=== PATIENT | female | born 1960 | race Two or more races ===

== ENCOUNTER 2017-01-22 17:15 | Inpatient (IN) | payer MEDICARE, OTHER ==
[~2017-01-22] VITALS: Ht 165.1 cm; Wt 111.0 kg
[~2017-01-22 17:15] MED LIST: CLON0.5T4 PO; DIPH50 PO; DULO60CA44 PO; FURO40 PO; HYDR32TA PO; HYDR8TAB2 PO; LEVO75 PO; OMEP20CA10 PO; POTA20TA11 PO; PREM3 PO; PROM25 PO; RAMI10TA PO
[2017-01-22] MEDS ORDERED: NAPR-58 PO (19:45)
[2017-01-22] MEDS ORDERED: VITAD1000 PO (19:45)
[2017-01-22] MEDS ORDERED: ARIP10TA14 PO (19:45)
[2017-01-22] MEDS ORDERED: ASPI81 PO (19:45)
[2017-01-22] MEDS ORDERED: VARE1TAB22 PO (19:45)
[2017-01-22] MEDS ORDERED: CLON.1 PO (19:45)
[2017-01-22] MEDS ORDERED: METO-325 PO (19:45)
[2017-01-22 20:14] LABS: BASOPHILS % (AUTO) 0.2 % (0.0-2.0); EOSINOPHILS % (AUTO) 1.1 % (1.0-6.0); HEMATOCRIT 39.6 % (36-46); HEMOGLOBIN 12.8 g/dL (12.0-16.0); LYMPHOCYTES # (AUTO) 2.4 K/uL (1.0-4.8); LYMPHOCYTES % (AUTO) 21.3 % (22.0-44.0); MEAN CORPUSCULAR HEMOGLOBIN 28.5 pg (26.0-34.0); MEAN CORPUSCULAR HGB CONC 32.4 G/dL (31.0-37.0); MEAN CORPUSCULAR VOLUME 88 fL (80-100); MONOCYTES # (AUTO) 0.4 K/uL (0.1-1.0); NEUTROPHILS # (AUTO) 8.3 K/uL (1.8-7.7); NEUTROPHILS % (AUTO) 73.4 % (40.0-70.0); PLATELET COUNT (AUTO) 319 K/uL (150-450); WHITE BLOOD COUNT (AUTO) 11.3 K/uL (4.5-11.0)
[2017-01-22 20:28] LABS: ANION GAP 7 mmol/L (8-16); CALCIUM, TOTAL 9.1 mg/dL (8.8-10.5); CARBON DIOXIDE 29 mmol/L (22-29); CHLORIDE 105 mmol/L (98-107); CREATININE 0.95 mg/dL (0.60-1.30); GLOMERULAR FILTR. RATE CALC > 60 mL/min (>60); POTASSIUM 3.2 mmol/L (3.5-5.1); SODIUM SERUM 141 mmol/L (136-145); UREA NITROGEN, BLOOD 14 mg/dL (7-18)
[2017-01-22 20:34] LABS: B-TYPE NATRIURETIC PEPTIDE 15 pg/mL (0-100)
[2017-01-22 20:36] LABS: LACTIC ACID 1.9 mmol/L (0.4-2.0)
[2017-01-22 20:43] LABS: ALANINE AMINOTRANSFERASE 30 U/L (12-78); ALBUMIN 3.6 g/dL (3.4-5.0); ASPARTATE AMINOTRANSFERASE 13 U/L (15-37); BILIRUBIN,TOTAL 0.2 mg/dL (0.1-1.0); THYROID STIMULATING HORMONE 2.08 uIU/mL (0.36-3.74); TOTAL PROTEIN, SERUM 7.7 g/dL (6.4-8.2)
[2017-01-22] MEDS ORDERED: KETOROLAC TROMETHAMINE 30 MG/ML VIAL IVP ONE (20:45)
[2017-01-22] MEDS ORDERED: VANCOMYCIN HCL 1 GM/D5% WATER 200 ML IV ONE ×2 (21:00→23:00)
[2017-01-22] MEDS ORDERED: POTASSIUM CHLORIDE 20 MEQ ER TABLET PO ONE (21:15)
[2017-01-22] MEDS ORDERED: SODIUM CHLORIDE 0.9% 1,000 ML IV ONE (21:30)
[2017-01-22] MEDS ORDERED: ONDANSETRON HCL 4 MG/2 ML VIAL IVP PRN (22:15)
[2017-01-22] MEDS ORDERED: HYDROmorphone 2 MG/ML SYRINGE IVP ONE (22:15)
[2017-01-22] MEDS ORDERED: ACETAMINOPHEN 325 MG TABLET PO PRN (22:15)
[2017-01-22] MEDS ORDERED: 0.9% SODIUM CHLORIDE 10 ML SYRINGE IVP PRN (22:15)
[2017-01-22 23:12] VITALS: BP 144/86
[2017-01-23] MEDS ORDERED: NAPROXEN 500 MG TABLET PO SCH
[2017-01-23] MEDS: METOPROLOL SUCCINATE 50 MG ER TABLET PO SCH ×3 (00:43→19:48)
[2017-01-23] MEDS: ClonazePAM 0.5 MG TABLET PO SCH ×3 (00:43→19:48)
[2017-01-23] MEDS: CloNIDine HCL 0.1 MG TABLET PO SCH ×2 (00:45→19:48)
[2017-01-23 04:13] VITALS: BP 136/89
[2017-01-23] MEDS: PROMETHAZINE HCL 25 MG TABLET PO SCH ×3 (06:39→18:23)
[2017-01-23] MEDS: LEVOTHYROXINE SODIUM 75 MCG TABLET PO SCH (06:40)
[2017-01-23 07:31] VITALS: BP 157/88
[2017-01-23] MEDS ORDERED: VANCOMYCIN HCL 1.5 GM in DEXTROSE 5%-WATER 250 ML IV SCH (08:00)
[2017-01-23] MEDS: RAMIPRIL 10 MG CAPSULE PO SCH (08:22)
[2017-01-23] MEDS: ASPIRIN 81 MG CHEWABLE TABLET PO SCH (08:23)
[2017-01-23] MEDS: DULoxetine HCL 60 MG CAPSULE PO SCH (08:23)
[2017-01-23] MEDS: CHOLECALCIFEROL (VIT D3) 2,000 UNITS TABLET PO SCH (08:24)
[2017-01-23] MEDS ORDERED: ARIPiprazole 10 MG TABLET PO SCH ×2 (09:00→11:00)
[2017-01-23] MEDS ORDERED: ACETAMINOPHEN 325 MG TABLET PO PRN (10:30)
[2017-01-23] MEDS ORDERED: IPRATROPIUM BROMIDE 0.5 MG/2.5 ML NEB SOLUTION NEB PRN (10:30)
[2017-01-23] MEDS ORDERED: ALBUTEROL SULFATE 2.5 MG/0.5 ML NEB SOLUTION NEB PRN (10:30)
[2017-01-23] MEDS ORDERED: HydrALAZINE HCL 10 MG TABLET PO PRN (10:30)
[2017-01-23] MEDS ORDERED: ONDANSETRON HCL 4 MG/2 ML VIAL IVP PRN (10:30)
[2017-01-23] MEDS ORDERED: POTASSIUM CHL 10 MEQ/WATER 50 ML IV PRN (10:30)
[2017-01-23] MEDS ORDERED: MAGNESIUM HYDROXIDE SUSPENSION 30 ML UDCUP PO PRN (10:30)
[2017-01-23] MEDS ORDERED: ZOLPIDEM TARTRATE 5 MG TABLET PO PRN (10:30)
[2017-01-23] MEDS ORDERED: BISACODYL 10 MG RECTAL RECTAL SUPPOSITORY PR PRN (10:30)
[2017-01-23] MEDS: HYDROmorphone 2 MG/ML SYRINGE IVP PRN ×2 (11:39→22:58)
[2017-01-23 11:51] VITALS: BP 136/77
[2017-01-23] MEDS: POTASSIUM CHLORIDE 20 MEQ ER TABLET PO PRN (14:50)
[2017-01-23 15:31] VITALS: BP 163/86
[2017-01-23] MEDS: MORPHINE SULFATE 2 MG/ML SYRINGE IVP PRN (18:45)
[2017-01-23 19:35] VITALS: BP 150/84
[2017-01-23] MEDS ORDERED: SODIUM CHLORIDE 0.9% 500 ML IV ONE (19:46)
[2017-01-23] MEDS ORDERED: VANCOMYCIN HCL 1.25 GM in DEXTROSE 5%-WATER 250 ML IV SCH (20:00)
[2017-01-23] MEDS: CeFAZolin 2 GM/DEXTROSE 50 ML IV SCH (22:58)
[2017-01-23 23:25] VITALS: BP 145/86
[2017-01-24] MEDS ORDERED: 0.9% SODIUM CHLORIDE 10 ML SYRINGE IVP PRN (00:15)
[2017-01-24 04:59] VITALS: BP 146/71
[2017-01-24] MEDS: PROMETHAZINE HCL 25 MG TABLET PO SCH ×3 (05:27→18:15)
[2017-01-24] MEDS: LEVOTHYROXINE SODIUM 75 MCG TABLET PO SCH (05:27)
[2017-01-24 06:02] LABS: BASOPHILS % (AUTO) 0.6 % (0.0-2.0); EOSINOPHILS % (AUTO) 2.9 % (1.0-6.0); HEMATOCRIT 37.7 % (36-46); LYMPHOCYTES # (AUTO) 2.2 K/uL (1.0-4.8); LYMPHOCYTES % (AUTO) 26.3 % (22.0-44.0); MEAN CORPUSCULAR HEMOGLOBIN 28.2 pg (26.0-34.0); MEAN CORPUSCULAR HGB CONC 31.9 G/dL (31.0-37.0); MEAN CORPUSCULAR VOLUME 89 fL (80-100); MONOCYTES # (AUTO) 0.5 K/uL (0.1-1.0); MONOCYTES % (AUTO) 5.7 % (2.0-9.0); NEUTROPHILS # (AUTO) 5.5 K/uL (1.8-7.7); NEUTROPHILS % (AUTO) 64.5 % (40.0-70.0); PLATELET COUNT (AUTO) 278 K/uL (150-450); RED BLOOD CELL COUNT(AUTO) 4.25 MIL/uL (4.00-5.20); RED CELL DISTRIBUTION WIDTH 14.1 % (11.5-14.5); WHITE BLOOD COUNT (AUTO) 8.6 K/uL (4.5-11.0)
[2017-01-24 06:55] LABS: HEMOGLOBIN A1C 6.3 % (4.5-6.2)
[2017-01-24 07:24] LABS: ANION GAP 8 mmol/L (8-16); CALCIUM, TOTAL 8.9 mg/dL (8.8-10.5); CARBON DIOXIDE 30 mmol/L (22-29); CHLORIDE 106 mmol/L (98-107); CREATININE 0.86 mg/dL (0.60-1.30); GLOMERULAR FILTR. RATE CALC > 60 mL/min (>60); POTASSIUM 3.8 mmol/L (3.5-5.1); SODIUM SERUM 144 mmol/L (136-145); THYROID STIMULATING HORMONE 2.12 uIU/mL (0.36-3.74); UREA NITROGEN, BLOOD 10 mg/dL (7-18)
[2017-01-24] MEDS: HYDROmorphone 2 MG/ML SYRINGE IVP PRN ×3 (07:24→21:33)
[2017-01-24] MEDS: CeFAZolin 2 GM/DEXTROSE 50 ML IV SCH ×3 (07:30→23:36)
[2017-01-24] MEDS: PANTOPRAZOLE SODIUM 40 MG DR TABLET PO SCH (07:50)
[2017-01-24] MEDS: ASPIRIN 81 MG CHEWABLE TABLET PO SCH (07:50)
[2017-01-24] MEDS: ClonazePAM 0.5 MG TABLET PO SCH ×2 (07:50→19:56)
[2017-01-24] MEDS: ENOXAPARIN SODIUM 40 MG/0.4 ML PF SYRINGE SQ SCH (07:51)
[2017-01-24] MEDS: METOPROLOL SUCCINATE 50 MG ER TABLET PO SCH ×2 (07:52→19:56)
[2017-01-24] MEDS: ARIPiprazole 5 MG TABLET PO SCH (07:52)
[2017-01-24] MEDS: CHOLECALCIFEROL (VIT D3) 2,000 UNITS TABLET PO SCH (07:52)
[2017-01-24] MEDS: RAMIPRIL 10 MG CAPSULE PO SCH (07:53)
[2017-01-24] MEDS: DULoxetine HCL 60 MG CAPSULE PO SCH (07:54)
[2017-01-24] MEDS: NICOTINE 14 MG/24 HOUR PATCH TD SCH (08:00)
[2017-01-24 08:14] VITALS: BP 147/78
[2017-01-24 11:48] VITALS: BP 125/74
[2017-01-24 16:06] VITALS: BP 147/78
[2017-01-24] MEDS: CloNIDine HCL 0.1 MG TABLET PO SCH (19:56)
[2017-01-24 20:00] VITALS: BP 139/86
[2017-01-24 23:18] VITALS: BP 143/81
[2017-01-25 04:00] VITALS: BP 135/68
[2017-01-25] MEDS: LEVOTHYROXINE SODIUM 75 MCG TABLET PO SCH (05:50)
[2017-01-25] MEDS: PROMETHAZINE HCL 25 MG TABLET PO SCH ×3 (05:50→18:14)
[2017-01-25] MEDS: HYDROmorphone 2 MG/ML SYRINGE IVP PRN ×2 (05:55→14:42)
[2017-01-25 06:07] LABS: BASOPHILS # (AUTO) 0.08 K/uL (0.00-0.20); EOSINOPHILS # (AUTO) 0.17 K/uL (0.00-0.70); EOSINOPHILS % (AUTO) 2.14 % (1.0-6.0); HEMOGLOBIN 10.6 g/dL (12.0-16.0); LYMPHOCYTES % (AUTO) 24.7 % (22.0-44.0); MEAN CORPUSCULAR HEMOGLOBIN 29.6 pg (26.0-34.0); MEAN CORPUSCULAR HGB CONC 33.1 G/dL (31.0-37.0); MEAN CORPUSCULAR VOLUME 89 fL (80-100); MONOCYTES # (AUTO) 0.5 K/uL (0.1-1.0); MONOCYTES % (AUTO) 5.6 % (2.0-9.0); NEUTROPHILS # (AUTO) 5.3 K/uL (1.8-7.7); NEUTROPHILS % (AUTO) 66.5 % (40.0-70.0); PLATELET COUNT (AUTO) 235 K/uL (150-450); RED BLOOD CELL COUNT(AUTO) 3.57 MIL/uL (4.00-5.20); RED CELL DISTRIBUTION WIDTH 14.4 % (11.5-14.5)
[2017-01-25 06:49] LABS: ANION GAP 8 mmol/L (8-16); CALCIUM, TOTAL 7.8 mg/dL (8.8-10.5); CARBON DIOXIDE 29 mmol/L (22-29); CHLORIDE 106 mmol/L (98-107); CREATININE 0.85 mg/dL (0.60-1.30); GLOMERULAR FILTR. RATE CALC > 60 mL/min (>60); POTASSIUM 3.3 mmol/L (3.5-5.1); SODIUM SERUM 143 mmol/L (136-145); UREA NITROGEN, BLOOD 17 mg/dL (7-18)
[2017-01-25 07:20] VITALS: BP 135/82
[2017-01-25] MEDS: ARIPiprazole 5 MG TABLET PO SCH (08:43)
[2017-01-25] MEDS: ASPIRIN 81 MG CHEWABLE TABLET PO SCH (08:43)
[2017-01-25] MEDS: ClonazePAM 0.5 MG TABLET PO SCH ×2 (08:44→20:31)
[2017-01-25] MEDS: RAMIPRIL 10 MG CAPSULE PO SCH (08:44)
[2017-01-25] MEDS: PANTOPRAZOLE SODIUM 40 MG DR TABLET PO SCH (08:44)
[2017-01-25] MEDS: CHOLECALCIFEROL (VIT D3) 2,000 UNITS TABLET PO SCH (08:44)
[2017-01-25] MEDS: DULoxetine HCL 60 MG CAPSULE PO SCH (08:44)
[2017-01-25] MEDS: POTASSIUM CHLORIDE 20 MEQ ER TABLET PO PRN (08:45)
[2017-01-25] MEDS: METOPROLOL SUCCINATE 50 MG ER TABLET PO SCH ×2 (08:45→20:31)
[2017-01-25] MEDS: CeFAZolin 2 GM/DEXTROSE 50 ML IV SCH ×2 (08:46→16:05)
[2017-01-25] MEDS: ENOXAPARIN SODIUM 40 MG/0.4 ML PF SYRINGE SQ SCH (08:47)
[2017-01-25] MEDS: NICOTINE 14 MG/24 HOUR PATCH TD SCH (09:00)
[2017-01-25 11:20] VITALS: BP 125/84
[2017-01-25] MEDS ORDERED: ARIP5TAB9 PO (12:56)
[2017-01-25] MEDS: FUROSEMIDE 20 MG TABLET PO SCH (13:10)
[2017-01-25] MEDS: DiphenhydrAMINE HCL 25 MG CAPSULE PO PRN (16:05)
[2017-01-25 16:06] VITALS: BP 142/84
[2017-01-25 19:52] VITALS: BP 126/74
[2017-01-25] MEDS ORDERED: VANCOMYCIN HCL 1.25 GM in DEXTROSE 5%-WATER 250 ML IV SCH (20:00)
[2017-01-25] MEDS: CloNIDine HCL 0.1 MG TABLET PO SCH (20:31)
[2017-01-25 23:58] VITALS: BP 138/81
[2017-01-26] MEDS: HYDROmorphone 2 MG/ML SYRINGE IVP PRN ×3 (00:04→15:10)
[2017-01-26 04:00] VITALS: BP 137/75
[2017-01-26] MEDS: DiphenhydrAMINE HCL 25 MG CAPSULE PO PRN ×2 (04:10→10:00)
[2017-01-26] MEDS: PROMETHAZINE HCL 25 MG TABLET PO SCH ×3 (06:03→17:02)
[2017-01-26] MEDS: LEVOTHYROXINE SODIUM 75 MCG TABLET PO SCH (06:20)
[2017-01-26 06:37] LABS: BASOPHILS % (AUTO) 0.3 % (0.0-2.0); EOSINOPHILS % (AUTO) 2.8 % (1.0-6.0); HEMATOCRIT 35.1 % (36-46); HEMOGLOBIN 11.4 g/dL (12.0-16.0); LYMPHOCYTES # (AUTO) 2.1 K/uL (1.0-4.8); LYMPHOCYTES % (AUTO) 27.4 % (22.0-44.0); MEAN CORPUSCULAR HEMOGLOBIN 28.9 pg (26.0-34.0); MEAN CORPUSCULAR HGB CONC 32.5 G/dL (31.0-37.0); MEAN CORPUSCULAR VOLUME 89 fL (80-100); MONOCYTES # (AUTO) 0.4 K/uL (0.1-1.0); MONOCYTES % (AUTO) 5.4 % (2.0-9.0); NEUTROPHILS # (AUTO) 4.9 K/uL (1.8-7.7); NEUTROPHILS % (AUTO) 64.1 % (40.0-70.0); PLATELET COUNT (AUTO) 266 K/uL (150-450); RED BLOOD CELL COUNT(AUTO) 3.95 MIL/uL (4.00-5.20); RED CELL DISTRIBUTION WIDTH 14.3 % (11.5-14.5); WHITE BLOOD COUNT (AUTO) 7.7 K/uL (4.5-11.0)
[2017-01-26 06:45] LABS: ANION GAP 7 mmol/L (8-16); CALCIUM, TOTAL 8.7 mg/dL (8.8-10.5); CARBON DIOXIDE 31 mmol/L (22-29); CHLORIDE 105 mmol/L (98-107); CREATININE 0.82 mg/dL (0.60-1.30); GLOMERULAR FILTR. RATE CALC > 60 mL/min (>60); POTASSIUM 3.6 mmol/L (3.5-5.1); SODIUM SERUM 143 mmol/L (136-145); UREA NITROGEN, BLOOD 12 mg/dL (7-18)
[2017-01-26 08:07] VITALS: BP 133/78
[2017-01-26] MEDS: ENOXAPARIN SODIUM 40 MG/0.4 ML PF SYRINGE SQ SCH (08:08)
[2017-01-26] MEDS: FUROSEMIDE 20 MG TABLET PO SCH (08:09)
[2017-01-26] MEDS: PANTOPRAZOLE SODIUM 40 MG DR TABLET PO SCH (08:09)
[2017-01-26] MEDS: ASPIRIN 81 MG CHEWABLE TABLET PO SCH (08:09)
[2017-01-26] MEDS: METOPROLOL SUCCINATE 50 MG ER TABLET PO SCH ×2 (08:09→20:03)
[2017-01-26] MEDS: ARIPiprazole 5 MG TABLET PO SCH (08:09)
[2017-01-26] MEDS: DULoxetine HCL 60 MG CAPSULE PO SCH (08:09)
[2017-01-26] MEDS: RAMIPRIL 10 MG CAPSULE PO SCH (08:10)
[2017-01-26] MEDS: NICOTINE 14 MG/24 HOUR PATCH TD SCH (08:10)
[2017-01-26] MEDS: ClonazePAM 0.5 MG TABLET PO SCH ×2 (08:10→20:03)
[2017-01-26] MEDS: CHOLECALCIFEROL (VIT D3) 2,000 UNITS TABLET PO SCH (08:10)
[2017-01-26] MEDS: VANCOMYCIN HCL 1 GM/D5% WATER 200 ML IV SCH ×3 (08:13→23:54)
[2017-01-26] MEDS: DiphenhydrAMINE HCL 50 MG/ML VIAL IM PRN ×4 (10:00→23:58)
[2017-01-26 11:54] VITALS: BP 154/74
[2017-01-26 16:12] VITALS: BP 125/75
[2017-01-26 19:18] VITALS: BP 156/93
[2017-01-26] MEDS: CloNIDine HCL 0.1 MG TABLET PO SCH (20:04)
[2017-01-26] MEDS ORDERED: FUROSEMIDE 20 MG/2 ML VIAL IVP SCH (21:00)
[2017-01-26] MEDS: MORPHINE SULFATE 2 MG/ML SYRINGE IVP PRN (22:49)
[2017-01-26 23:23] VITALS: BP 119/68
[2017-01-27 04:40] VITALS: BP 143/75
[2017-01-27] MEDS: LEVOTHYROXINE SODIUM 75 MCG TABLET PO SCH (05:56)
[2017-01-27] MEDS: PROMETHAZINE HCL 25 MG TABLET PO SCH ×3 (05:56→17:49)
[2017-01-27 07:56] LABS: CALCIUM, TOTAL 8.8 mg/dL (8.8-10.5); CREATININE 0.96 mg/dL (0.60-1.30); POTASSIUM 3.8 mmol/L (3.5-5.1)
[2017-01-27] MEDS: PANTOPRAZOLE SODIUM 40 MG DR TABLET PO SCH (08:06)
[2017-01-27] MEDS: ENOXAPARIN SODIUM 40 MG/0.4 ML PF SYRINGE SQ SCH (08:06)
[2017-01-27] MEDS: ClonazePAM 0.5 MG TABLET PO SCH ×2 (08:06→20:42)
[2017-01-27] MEDS: CHOLECALCIFEROL (VIT D3) 2,000 UNITS TABLET PO SCH (08:06)
[2017-01-27] MEDS: ASPIRIN 81 MG CHEWABLE TABLET PO SCH (08:06)
[2017-01-27] MEDS: ARIPiprazole 5 MG TABLET PO SCH (08:06)
[2017-01-27] MEDS: DiphenhydrAMINE HCL 50 MG/ML VIAL IM PRN ×2 (08:07→16:08)
[2017-01-27] MEDS: METOPROLOL SUCCINATE 50 MG ER TABLET PO SCH ×2 (08:07→20:43)
[2017-01-27] MEDS: RAMIPRIL 10 MG CAPSULE PO SCH (08:07)
[2017-01-27] MEDS: DULoxetine HCL 60 MG CAPSULE PO SCH (08:07)
[2017-01-27] MEDS: VANCOMYCIN HCL 1 GM/D5% WATER 200 ML IV SCH (08:13)
[2017-01-27] MEDS: HYDROmorphone 2 MG/ML SYRINGE IVP PRN ×2 (08:14→16:08)
[2017-01-27 08:19] VITALS: BP 148/92
[2017-01-27 11:02] VITALS: BP 125/86
[2017-01-27 15:37] VITALS: BP 124/74
[2017-01-27 20:09] VITALS: BP 130/80
[2017-01-27] MEDS: VANCOMYCIN HCL 1.5 GM in DEXTROSE 5%-WATER 250 ML IV SCH (20:37)
[2017-01-27] MEDS: CloNIDine HCL 0.1 MG TABLET PO SCH (20:42)
[2017-01-27] MEDS: CefTAZidime PENTAHYDRATE 2 GM in DEXTROSE 5%-WATER 50 ML IV SCH (22:52)
[2017-01-27] MEDS: DiphenhydrAMINE HCL 50 MG/ML VIAL IVP PRN (22:53)
[2017-01-27 23:57] VITALS: BP 133/78
[2017-01-28] MEDS: HYDROmorphone 2 MG/ML SYRINGE IVP PRN ×3 (00:12→17:08)
[2017-01-28 04:00] VITALS: BP 125/81
[2017-01-28] MEDS: PROMETHAZINE HCL 25 MG TABLET PO SCH ×3 (06:17→19:05)
[2017-01-28] MEDS: LEVOTHYROXINE SODIUM 75 MCG TABLET PO SCH (06:17)
[2017-01-28] MEDS: CefTAZidime PENTAHYDRATE 2 GM in DEXTROSE 5%-WATER 50 ML IV SCH ×3 (06:18→22:02)
[2017-01-28] MEDS: DiphenhydrAMINE HCL 50 MG/ML VIAL IVP PRN ×2 (06:23→14:52)
[2017-01-28] MEDS ORDERED: SODIUM CHLORIDE 0.9% 250 ML IV ONE ×2 (06:32→12:47)
[2017-01-28 07:01] LABS: ANION GAP 7 mmol/L (8-16); CALCIUM, TOTAL 8.8 mg/dL (8.8-10.5); CARBON DIOXIDE 32 mmol/L (22-29); CHLORIDE 104 mmol/L (98-107); CREATININE 0.88 mg/dL (0.60-1.30); GLOMERULAR FILTR. RATE CALC > 60 mL/min (>60); POTASSIUM 3.5 mmol/L (3.5-5.1); SODIUM SERUM 143 mmol/L (136-145); UREA NITROGEN, BLOOD 10 mg/dL (7-18)
[2017-01-28 08:01] VITALS: BP 134/78
[2017-01-28] MEDS: VANCOMYCIN HCL 1.5 GM in DEXTROSE 5%-WATER 250 ML IV SCH ×2 (08:29→19:45)
[2017-01-28] MEDS: ENOXAPARIN SODIUM 40 MG/0.4 ML PF SYRINGE SQ SCH (08:30)
[2017-01-28] MEDS: FUROSEMIDE 20 MG/2 ML VIAL IVP SCH (08:31)
[2017-01-28] MEDS: ClonazePAM 0.5 MG TABLET PO SCH ×2 (08:32→19:45)
[2017-01-28] MEDS: ASPIRIN 81 MG CHEWABLE TABLET PO SCH (08:32)
[2017-01-28] MEDS: PANTOPRAZOLE SODIUM 40 MG DR TABLET PO SCH (08:32)
[2017-01-28] MEDS: METOPROLOL SUCCINATE 50 MG ER TABLET PO SCH ×2 (08:41→19:45)
[2017-01-28] MEDS: DULoxetine HCL 60 MG CAPSULE PO SCH (08:49)
[2017-01-28] MEDS: RAMIPRIL 10 MG CAPSULE PO SCH (11:11)
[2017-01-28] MEDS: ARIPiprazole 5 MG TABLET PO SCH (11:11)
[2017-01-28] MEDS: CHOLECALCIFEROL (VIT D3) 2,000 UNITS TABLET PO SCH (11:11)
[2017-01-28 11:50] VITALS: BP 140/82
[2017-01-28 16:11] VITALS: BP 116/80
[2017-01-28] MEDS ORDERED: GABAPENTIN 300 MG CAPSULE PO PRN (17:00)
[2017-01-28 19:23] VITALS: BP 135/74
[2017-01-28] MEDS: CloNIDine HCL 0.1 MG TABLET PO SCH (19:45)
[2017-01-28 23:14] VITALS: BP 130/84
[2017-01-29] MEDS: HYDROmorphone 2 MG/ML SYRINGE IVP PRN ×3 (01:13→17:11)
[2017-01-29] MEDS: DiphenhydrAMINE HCL 50 MG/ML VIAL IVP PRN ×3 (01:16→17:11)
[2017-01-29 04:45] VITALS: BP 130/73
[2017-01-29] MEDS: CefTAZidime PENTAHYDRATE 2 GM in DEXTROSE 5%-WATER 50 ML IV SCH ×2 (05:34→13:21)
[2017-01-29] MEDS: PROMETHAZINE HCL 25 MG TABLET PO SCH ×3 (05:34→17:03)
[2017-01-29] MEDS: LEVOTHYROXINE SODIUM 75 MCG TABLET PO SCH (05:34)
[2017-01-29] MEDS: VANCOMYCIN HCL 1.5 GM in DEXTROSE 5%-WATER 250 ML IV SCH (07:11)
[2017-01-29 07:47] VITALS: BP 129/74
[2017-01-29] MEDS: METOPROLOL SUCCINATE 50 MG ER TABLET PO SCH (08:25)
[2017-01-29] MEDS: PANTOPRAZOLE SODIUM 40 MG DR TABLET PO SCH (08:25)
[2017-01-29] MEDS: ClonazePAM 0.5 MG TABLET PO SCH (08:25)
[2017-01-29] MEDS: CHOLECALCIFEROL (VIT D3) 2,000 UNITS TABLET PO SCH (08:25)
[2017-01-29] MEDS: ASPIRIN 81 MG CHEWABLE TABLET PO SCH (08:25)
[2017-01-29] MEDS: RAMIPRIL 10 MG CAPSULE PO SCH (08:25)
[2017-01-29] MEDS: DULoxetine HCL 60 MG CAPSULE PO SCH (08:26)
[2017-01-29] MEDS: ENOXAPARIN SODIUM 40 MG/0.4 ML PF SYRINGE SQ SCH (08:26)
[2017-01-29] MEDS: FUROSEMIDE 20 MG/2 ML VIAL IVP SCH (08:31)
[2017-01-29 08:38] LABS: ANION GAP 5 mmol/L (8-16); CALCIUM, TOTAL 8.8 mg/dL (8.8-10.5); CARBON DIOXIDE 33 mmol/L (22-29); CHLORIDE 103 mmol/L (98-107); CREATININE 0.86 mg/dL (0.60-1.30); GLOMERULAR FILTR. RATE CALC > 60 mL/min (>60); POTASSIUM 3.9 mmol/L (3.5-5.1); SODIUM SERUM 141 mmol/L (136-145); UREA NITROGEN, BLOOD 11 mg/dL (7-18)
[2017-01-29] MEDS ORDERED: ARIPiprazole 5 MG TABLET PO SCH (09:00)
[2017-01-29 11:56] VITALS: BP 138/78
== END 2017-01-29 18:04 | DRG 603 ==
LOC: EMS 17:17 → 6N 22:16
PROVIDERS: ADMIT Internal Medicine Geriatric Medicine; ATTEND Internal Medicine Geriatric Medicine
DX: L03.115 Cellulitis of right lower limb (principal); F33.9 Major depressive disorder, recurrent, unspecified; Z68.41 Body mass index [BMI] 40.0-44.9, adult; E55.9 Vitamin D deficiency, unspecified; L03.116 Cellulitis of left lower limb; I50.9 Heart failure, unspecified; E03.9 Hypothyroidism, unspecified; E78.5 Hyperlipidemia, unspecified; E87.6 Hypokalemia; J44.9 Chronic obstructive pulmonary disease, unspecified; F42.9 Obsessive-compulsive disorder, unspecified; F41.0 Panic disorder [episodic paroxysmal anxiety]; D64.9 Anemia, unspecified; F40.00 Agoraphobia, unspecified; T36.95XA Adverse effect of unspecified systemic antibiotic, initial encounter; M79.7 Fibromyalgia; L29.9 Pruritus, unspecified; F25.9 Schizoaffective disorder, unspecified; S81.801A Unspecified open wound, right lower leg, initial encounter; E78.00 Pure hypercholesterolemia, unspecified; I10 Essential (primary) hypertension; E66.9 Obesity, unspecified; Z79.899 Other long term (current) drug therapy; Z79.82 Long term (current) use of aspirin; Z88.2 Allergy status to sulfonamides; Z88.0 Allergy status to penicillin; Z88.1 Allergy status to other antibiotic agents; Z88.8 Allergy status to other drugs, medicaments and biological substances; Z86.73 Personal history of transient ischemic attack (TIA), and cerebral infarction without residual deficits; Z90.49 Acquired absence of other specified parts of digestive tract; Z90.710 Acquired absence of both cervix and uterus; W55.03XA Scratched by cat, initial encounter; Y93.89 Activity, other specified; Y92.89 Other specified places as the place of occurrence of the external cause; Y99.8 Other external cause status
CPT/HCPCS: 82306; 82607; 82746; 83036; 83605; 83735; 84132; 84439; 84443; 85651; 86140; 87040; 96365; 96366; 96375; 97161; 99285; J0690; J0713; J1170; J1200; J1650; J1885; J1940; J2270; J3370; J7030; J7040; J7050; J7060

== ENCOUNTER → 2017-02-28 | Outpatient (CLI) | payer MEDICARE, OTHER ==
[~2017-02-28] MED LIST changes: +ARIP5TAB9 PO; +ASPI81 PO; +CLON.1 PO; -DIPH50 PO; -FURO40 PO; -HYDR32TA PO; -HYDR8TAB2 PO; +METO-325 PO; +NAPR-58 PO; -OMEP20CA10 PO; -POTA20TA11 PO; -PREM3 PO; +VARE1TAB22 PO; +VITAD1000 PO
== END | disposition home or self-care (01) ==
LOC: RADPV 10:58
PROVIDERS: ATTEND Legal Medicine
DX: M51.36 Other intervertebral disc degeneration, lumbar region (principal); M51.37 Other intervertebral disc degeneration, lumbosacral region; M47.816 Spondylosis without myelopathy or radiculopathy, lumbar region; M43.16 Spondylolisthesis, lumbar region; M25.561 Pain in right knee; M25.562 Pain in left knee
CPT/HCPCS: 72100

== ENCOUNTER 2017-05-31 00:01 | Outpatient (RCR) | payer MEDICARE, MEDICAID, SELFPAY ==
[2014-06-15 11:46] VITALS: BP 140/87
[~2017-05-31 00:01] MED LIST changes: +AMLO-511 PO; +AMOX1TAB15 PO; +AMOX500C2 PO; +ARIP10TA8 PO; +ARIP5TAB8 PO; -ARIP5TAB9 PO; +ASPI-825 PO; +CARI250T PO; +CARI350 PO; +CEPH-581; +CHOL2000 PO; +CIPR-278 PO; +CLEOCIN PO; +CLON-570 PO; -CLON.1 PO; +CLON.5 PO; +CLOP75 PO; +CLOP75TA14; +CYCL5TAB PO; +DIPH25CA85 PO; +DIPH25CA99 PO; +DIPH50 PO; +DIPH50CA4 PO; +DOCU-119 PO; +DULO20CA30 PO; +FENT25PAT TD; +FLUC200T PO; +FURO20 PO; +FURO40 PO; +HYDR12TA PO; +HYDR2 PO; +HYDR32TA PO; +HYDR8TAB2 PO; +KDUR20 PO; +LEVO25TA4 PO; +LORA-192 PO; -METO-325 PO; +METO-391 PO; +METO25TA6 PO; +MILN100T PO; +MILN50TA PO; +MULT1TAB70 PO; +OMEP20 PO; +OMEP20CA10 PO; +OXYC-112 PO; +OXYC-158 PO; +OXYC1TAB5 PO; +OXYC60TA7 PO; +OXYM7.5T PO; +PANT40TA25 PO; +POTA20TA11 PO; +POTA8CAP10 PO; +PREG150C PO; +PREG75 PO; +PREM3 PO; +PROM12.510 PO; +PROM25TA7 PO; +PROM6.25 PO; +QUET25TA34 PO; +RAMI10 PO; +ROPI1TAB11 PO; +SERT50TA12 PO; +SULF-168 PO; +TAPE100T2 PO; +TOLT2CAP27 PO; +TOLT4CAP33 PO; +TRAZ-144 PO; +TRAZ-147 PO; +TRAZ150T79 PO; +VARE1TAB21; +VICOT; +WARF2TAB6 PO; +ZOLP10TA2; +ZOLP10TA6 PO; +ZOLP10TA7 PO; +[UNRECOGNIZED DRUG - CODE] PO
== END 2017-06-29 | disposition home or self-care (01) ==
LOC: IOPBV 00:01
PROVIDERS: ATTEND Psychiatry & Neurology Psychiatry
DX: F25.9 Schizoaffective disorder, unspecified (principal); R29.90 Unspecified symptoms and signs involving the nervous system; I25.10 Atherosclerotic heart disease of native coronary artery without angina pectoris; E78.00 Pure hypercholesterolemia, unspecified; I10 Essential (primary) hypertension; J44.9 Chronic obstructive pulmonary disease, unspecified; K82.9 Disease of gallbladder, unspecified; M79.7 Fibromyalgia; M19.90 Unspecified osteoarthritis, unspecified site; E11.9 Type 2 diabetes mellitus without complications; F17.210 Nicotine dependence, cigarettes, uncomplicated; E03.9 Hypothyroidism, unspecified; D64.9 Anemia, unspecified; Z90.49 Acquired absence of other specified parts of digestive tract; Z90.710 Acquired absence of both cervix and uterus; Z99.81 Dependence on supplemental oxygen; Z86.718 Personal history of other venous thrombosis and embolism; Z86.73 Personal history of transient ischemic attack (TIA), and cerebral infarction without residual deficits; Z88.6 Allergy status to analgesic agent; Z88.2 Allergy status to sulfonamides; Z88.8 Allergy status to other drugs, medicaments and biological substances
CPT/HCPCS: 90853

== ENCOUNTER 2017-07-13 17:00 | Emergency (ER) | payer MEDICARE, OTHER ==
[~2017-07-13] VITALS: Ht 162.6 cm; Wt 109.1 kg
[~2017-07-13 17:00] MED LIST changes: -AMLO-511 PO; -AMOX1TAB15 PO; -AMOX500C2 PO; -ARIP10TA8 PO; -ASPI-825 PO; -CARI250T PO; -CARI350 PO; -CEPH-581; -CHOL2000 PO; -CIPR-278 PO; -CLEOCIN PO; -CLON.5 PO; -CLOP75 PO; -CLOP75TA14; -CYCL5TAB PO; -DIPH25CA85 PO; -DIPH25CA99 PO; -DIPH50 PO; -DIPH50CA4 PO; -DOCU-119 PO; -DULO20CA30 PO; -FENT25PAT TD; -FLUC200T PO; -FURO20 PO; -FURO40 PO; -HYDR12TA PO; -HYDR2 PO; -HYDR32TA PO; -HYDR8TAB2 PO; -KDUR20 PO; -LEVO25TA4 PO; -LORA-192 PO; -METO25TA6 PO; -MILN100T PO; -MILN50TA PO; -MULT1TAB70 PO; -OMEP20 PO; -OMEP20CA10 PO; -OXYC-112 PO; -OXYC-158 PO; -OXYC1TAB5 PO; -OXYC60TA7 PO; -OXYM7.5T PO; -PANT40TA25 PO; -POTA20TA11 PO; -POTA8CAP10 PO; -PREG150C PO; -PREG75 PO; -PREM3 PO; -PROM12.510 PO; -PROM25TA7 PO; -PROM6.25 PO; -QUET25TA34 PO; -RAMI10 PO; -ROPI1TAB11 PO; -SERT50TA12 PO; -SULF-168 PO; -TAPE100T2 PO; -TOLT2CAP27 PO; -TOLT4CAP33 PO; -TRAZ-144 PO; -TRAZ-147 PO; -TRAZ150T79 PO; -VARE1TAB21; -VICOT; -WARF2TAB6 PO; -ZOLP10TA2; -ZOLP10TA6 PO; -ZOLP10TA7 PO; -[UNRECOGNIZED DRUG - CODE] PO
[2017-07-13] MEDS ORDERED: HYDR-305 PO (17:19)
[2017-07-13] MEDS ORDERED: RAMI10 PO (17:19)
[2017-07-13] MEDS ORDERED: FURO40 PO (17:19)
[2017-07-13 17:30] VITALS: BP 139/81
== END 2017-07-13 18:13 | disposition left against medical advice (07) ==
LOC: EMS 17:02
DX: K12.0 Recurrent oral aphthae (principal); I25.2 Old myocardial infarction; J44.9 Chronic obstructive pulmonary disease, unspecified; E78.00 Pure hypercholesterolemia, unspecified; I10 Essential (primary) hypertension; I25.10 Atherosclerotic heart disease of native coronary artery without angina pectoris; I20.9 Angina pectoris, unspecified; Z86.73 Personal history of transient ischemic attack (TIA), and cerebral infarction without residual deficits; Z87.891 Personal history of nicotine dependence; Z88.1 Allergy status to other antibiotic agents; Z88.5 Allergy status to narcotic agent; Z88.2 Allergy status to sulfonamides; Z88.8 Allergy status to other drugs, medicaments and biological substances
CPT/HCPCS: 99281

== ENCOUNTER 2017-11-23 17:19 | Emergency (ER) | payer MEDICARE, OTHER ==
[~2017-11-23] VITALS: Ht 162.6 cm; Wt 104.5 kg
[~2017-11-23 17:19] MED LIST changes: -ARIP5TAB8 PO; +FURO40 PO; +HYDR-305 PO; -NAPR-58 PO; +RAMI10 PO; -VARE1TAB22 PO
[2017-11-23] MEDS ORDERED: ACETAMINOPHEN 500 MG TABLET PO ONE (19:15)
[2017-11-23] MEDS ORDERED: CEPHALEXIN MONOHYDRATE 500 MG CAPSULE PO ONE (19:15)
[2017-11-23] MEDS ORDERED: DOXYCYCLINE 100 MG CAPSULE PO ONE (19:15)
[2017-11-23 19:27] LABS: EOSINOPHILS % (AUTO) 2.1 % (1.0-6.0); HEMATOCRIT 38.1 % (36-46); HEMOGLOBIN 12.9 g/dL (12.0-16.0); LYMPHOCYTES % (AUTO) 24.8 % (22.0-44.0); MEAN CORPUSCULAR HEMOGLOBIN 29.6 pg (26.0-34.0); MEAN CORPUSCULAR HGB CONC 33.9 G/dL (31.0-37.0); MEAN CORPUSCULAR VOLUME 87 fL (80-100); MONOCYTES # (AUTO) 0.4 K/uL (0.1-1.0); MONOCYTES % (AUTO) 4.6 % (2.0-9.0); NEUTROPHILS # (AUTO) 5.4 K/uL (1.8-7.7); NEUTROPHILS % (AUTO) 67.5 % (40.0-70.0); PLATELET COUNT (AUTO) 270 K/uL (150-450); RED BLOOD CELL COUNT(AUTO) 4.35 MIL/uL (4.00-5.20); RED CELL DISTRIBUTION WIDTH 13.4 % (11.5-14.5)
[2017-11-23 20:01] LABS: LACTIC ACID 1.6 mmol/L (0.4-2.0)
[2017-11-23 20:06] LABS: ANION GAP 5 mmol/L (8-16); CALCIUM, TOTAL 9.4 mg/dL (8.8-10.5); CARBON DIOXIDE 33 mmol/L (22-29); CHLORIDE 102 mmol/L (98-107); CREATININE 0.87 mg/dL (0.60-1.30); GLOMERULAR FILTR. RATE CALC > 60 mL/min (>60); GLUCOSE,RANDOM 89 mg/dL (70-110); POTASSIUM 3.3 mmol/L (3.5-5.1); SODIUM SERUM 140 mmol/L (136-145); UREA NITROGEN, BLOOD 13 mg/dL (7-18)
[2017-11-23 20:41] VITALS: BP 166/85
== END 2017-11-23 20:44 | disposition home or self-care (01) ==
LOC: EMS 17:24
DX: L03.116 Cellulitis of left lower limb (principal); L03.115 Cellulitis of right lower limb; I10 Essential (primary) hypertension; I89.0 Lymphedema, not elsewhere classified; J44.9 Chronic obstructive pulmonary disease, unspecified; E78.00 Pure hypercholesterolemia, unspecified; Z88.5 Allergy status to narcotic agent; Z88.2 Allergy status to sulfonamides; Z88.1 Allergy status to other antibiotic agents; Z86.73 Personal history of transient ischemic attack (TIA), and cerebral infarction without residual deficits
CPT/HCPCS: 83605; 87040; 99284

== ENCOUNTER 2018-09-26 13:28 | Emergency (ER) | payer MEDICARE, MEDICAID ==
[~2018-09-26] VITALS: Ht 162.6 cm; Wt 104.5 kg
[~2018-09-26 13:28] MED LIST changes: +CHOL200059 PO; +CLON0.5T12 PO; -CLON0.5T4 PO; -HYDR-305 PO; -RAMI10TA PO; +VALB40CA PO; -VITAD1000 PO
[2018-09-26 16:34] VITALS: BP 160/92
== END 2018-09-26 16:56 | disposition home or self-care (01) ==
LOC: EMS 13:30
DX: L02.416 Cutaneous abscess of left lower limb (principal); L02.415 Cutaneous abscess of right lower limb; L03.116 Cellulitis of left lower limb; L03.115 Cellulitis of right lower limb; I83.12 Varicose veins of left lower extremity with inflammation; I83.11 Varicose veins of right lower extremity with inflammation; I10 Essential (primary) hypertension; F41.9 Anxiety disorder, unspecified; J44.9 Chronic obstructive pulmonary disease, unspecified; M19.90 Unspecified osteoarthritis, unspecified site; F32.9 Major depressive disorder, single episode, unspecified; E78.00 Pure hypercholesterolemia, unspecified; F20.9 Schizophrenia, unspecified; Z86.73 Personal history of transient ischemic attack (TIA), and cerebral infarction without residual deficits; Z90.49 Acquired absence of other specified parts of digestive tract; Z90.710 Acquired absence of both cervix and uterus; Z87.891 Personal history of nicotine dependence; Z88.1 Allergy status to other antibiotic agents; Z88.5 Allergy status to narcotic agent; Z88.2 Allergy status to sulfonamides; Z88.8 Allergy status to other drugs, medicaments and biological substances; Z79.82 Long term (current) use of aspirin; Z79.899 Other long term (current) drug therapy

== ENCOUNTER 2018-12-06 19:15 | Inpatient (IN) | payer MEDICARE, MEDICAID ==
[~2018-12-06] VITALS: Ht 162.6 cm; Wt 119.9 kg
[2018-12-06] MEDS ORDERED: DIPH12.55 PO (19:36)
[2018-12-06] MEDS ORDERED: DULO20CA30 PO (19:36)
[2018-12-06] MEDS ORDERED: NAPR-58 PO (19:36)
[2018-12-06] MEDS ORDERED: VARE1TAB22 PO (19:36)
[2018-12-06] MEDS ORDERED: RAMI10 PO (19:36)
[2018-12-06] MEDS ORDERED: DEUT9TAB PO (19:36)
[2018-12-06] MEDS ORDERED: HYDR10TA31 PO (19:36)
[2018-12-06] MEDS ORDERED: OXYC-522 PO (19:36)
[2018-12-06] MEDS ORDERED: KETOROLAC TROMETHAMINE 30 MG/ML VIAL IVP ONE (20:30)
[2018-12-06] MEDS ORDERED: IOVERSOL 350 MG/ML 150 ML VIAL ONE (21:05)
[2018-12-06] MEDS ORDERED: KETOROLAC TROMETHAMINE 30 MG/ML VIAL IM ONE (21:30)
[2018-12-06 22:18] LABS: BASOPHILS % (AUTO) 1.1 % (0.0-2.0); EOSINOPHILS % (AUTO) 1.7 % (1.0-6.0); HEMATOCRIT 32.4 % (36-46); HEMOGLOBIN 10.6 g/dL (12.0-16.0); LYMPHOCYTES # (AUTO) 2.8 K/uL (1.0-4.8); LYMPHOCYTES % (AUTO) 24.8 % (22.0-44.0); MEAN CORPUSCULAR HEMOGLOBIN 28.8 pg (26.0-34.0); MEAN CORPUSCULAR HGB CONC 32.7 G/dL (31.0-37.0); MEAN CORPUSCULAR VOLUME 88 fL (80-100); MONOCYTES # (AUTO) 0.8 K/uL (0.1-1.0); MONOCYTES % (AUTO) 7.1 % (2.0-9.0); NEUTROPHILS # (AUTO) 7.3 K/uL (1.8-7.7); NEUTROPHILS % (AUTO) 65.3 % (40.0-70.0); PLATELET COUNT (AUTO) 292 K/uL (150-450); RED BLOOD CELL COUNT(AUTO) 3.69 MIL/uL (4.00-5.20); RED CELL DISTRIBUTION WIDTH 14.3 % (11.5-14.5)
[2018-12-06 22:32] LABS: ANION GAP 8 mmol/L (8-16); CALCIUM, TOTAL 9.2 mg/dL (8.8-10.5); CARBON DIOXIDE 29 mmol/L (22-29); CHLORIDE 107 mmol/L (98-107); CREATININE 1.18 mg/dL (0.60-1.30); GLOMERULAR FILTR. RATE CALC 47 mL/min (>60); GLUCOSE,RANDOM 89 mg/dL (70-110); POTASSIUM 3.9 mmol/L (3.5-5.1); SODIUM SERUM 144 mmol/L (136-145); UREA NITROGEN, BLOOD 25 mg/dL (7-18)
[2018-12-06 22:43] LABS: LACTIC ACID 2.5 mmol/L (0.4-2.0)
[2018-12-06 22:46] LABS: ALANINE AMINOTRANSFERASE 23 U/L (12-78); ALBUMIN 3.4 g/dL (3.4-5.0); ALKALINE PHOSPHATASE 81 U/L (46-116); ASPARTATE AMINOTRANSFERASE 18 U/L (15-37); BILIRUBIN,TOTAL 0.3 mg/dL (0.1-1.0); TOTAL PROTEIN, SERUM 7.1 g/dL (6.4-8.2)
[2018-12-06 22:49] LABS: B-TYPE NATRIURETIC PEPTIDE 24 pg/mL (0-100)
[2018-12-06] MEDS ORDERED: LIDOCAINE/PF 1% 2 ML VIAL IM ONE (23:00)
[2018-12-06] MEDS ORDERED: SODIUM CHLORIDE 0.9% 1,000 ML IV ONE (23:00)
[2018-12-06] MEDS ORDERED: CefTRIAXone SODIUM 1 GM/VIAL IM ONE (23:00)
[2018-12-07] MEDS ORDERED: ACETAMINOPHEN 325 MG TABLET PO PRN
[2018-12-07] MEDS ORDERED: BISACODYL 10 MG RECTAL RECTAL SUPPOSITORY PR PRN
[2018-12-07] MEDS ORDERED: MAGNESIUM HYDROXIDE SUSPENSION 30 ML UDCUP PO PRN
[2018-12-07] MEDS ORDERED: HYDROCODONE/ACETAMINOPHEN 5-325 MG TABLET PO PRN
[2018-12-07] MEDS ORDERED: ZOLPIDEM TARTRATE 5 MG TABLET PO PRN
[2018-12-07 00:12] VITALS: BP 139/80
[2018-12-07] MEDS: HEPARIN SODIUM,PORCINE 5,000 UNITS/ML VIAL SQ SCH ×4 (00:56→23:04)
[2018-12-07] MEDS ORDERED: VANCOMYCIN HCL 1 GM/D5% WATER 200 ML IV ONE ×2 (02:00)
[2018-12-07] MEDS ORDERED: OxyCODONE HCL/ACETAMINOPHEN 10-325 MG TABLET PO ONE (03:15)
[2018-12-07 05:24] VITALS: BP 133/69
[2018-12-07] MEDS: LEVOTHYROXINE SODIUM 75 MCG TABLET PO SCH ×2 (06:24→08:46)
[2018-12-07] MEDS ORDERED: VANCOMYCIN HCL 1 GM/D5% WATER 200 ML IV SCH (08:00)
[2018-12-07] MEDS: FUROSEMIDE 40 MG TABLET PO SCH (08:45)
[2018-12-07] MEDS: ASPIRIN 81 MG CHEWABLE TABLET PO SCH (08:45)
[2018-12-07] MEDS: HydrALAZINE HCL 10 MG TABLET PO SCH ×3 (08:45→20:32)
[2018-12-07] MEDS: METOPROLOL SUCCINATE 50 MG ER TABLET PO SCH ×2 (08:45→20:31)
[2018-12-07] MEDS: ClonazePAM 1 MG TABLET PO SCH ×2 (08:45→20:31)
[2018-12-07] MEDS: DOCUSATE SODIUM 100 MG CAPSULE PO SCH ×2 (08:45→20:39)
[2018-12-07] MEDS: PANTOPRAZOLE SODIUM 40 MG DR TABLET PO SCH (08:46)
[2018-12-07] MEDS: CHOLECALCIFEROL (VIT D3) 2,000 UNITS TABLET PO SCH (08:46)
[2018-12-07] MEDS: VANCOMYCIN HCL 1.25 GM in DEXTROSE 5%-WATER 250 ML IV SCH ×2 (08:51→20:30)
[2018-12-07] MEDS ORDERED: RAMIPRIL 10 MG CAPSULE PO SCH (09:00)
[2018-12-07] MEDS ORDERED: *NON-FORMULARY MED [ENTER DRUG, DOSE, FREQ IN COMMENTS] CLINICAL SCH (10:00)
[2018-12-07] MEDS ORDERED: OxyCODONE HCL/ACETAMINOPHEN 10-325 MG TABLET PO PRN (10:15)
[2018-12-07] MEDS: OxyCODONE HCL/ACETAMINOPHEN 10-325 MG TABLET PO PRN ×3 (10:34→23:03)
[2018-12-07 11:56] VITALS: BP 156/81
[2018-12-07] MEDS: AUSTEDO 9 MG PO SCH ×2 (12:49→20:34)
[2018-12-07] MEDS ORDERED: -PHARMACY VACCINE NOTE- MISC ONE (13:15)
[2018-12-07] MEDS ORDERED: PNEUMOCOCCAL VACCINE POLYVALENT 0.5 ML VIAL [PPSV23] IM ONE (13:15)
[2018-12-07 16:12] VITALS: BP 153/82
[2018-12-07 20:05] VITALS: BP 148/65
[2018-12-07] MEDS: RAMIPRIL 10 MG CAPSULE PO SCH (20:31)
[2018-12-07] MEDS ORDERED: CloNIDine HCL 0.1 MG TABLET PO SCH (21:00)
[2018-12-07] MEDS: ONDANSETRON HCL 4 MG/2 ML VIAL IVP PRN (21:12)
[2018-12-07 23:27] VITALS: BP 126/57
[2018-12-08 04:21] VITALS: BP 138/70
[2018-12-08] MEDS: OxyCODONE HCL/ACETAMINOPHEN 10-325 MG TABLET PO PRN ×2 (05:29→16:32)
[2018-12-08] MEDS: ONDANSETRON HCL 4 MG/2 ML VIAL IVP PRN ×2 (06:33→17:48)
[2018-12-08 06:47] LABS: CALCIUM, TOTAL 8.7 mg/dL (8.8-10.5); CREATININE 1.08 mg/dL (0.60-1.30); POTASSIUM 3.6 mmol/L (3.5-5.1); VANCOMYCIN,RANDOM 16.3 mcg/mL (25.0-50.0)
[2018-12-08] MEDS ORDERED: SODIUM CHLORIDE 0.9% 500 ML IV ONE (08:04)
[2018-12-08 08:08] VITALS: BP 124/73
[2018-12-08] MEDS: HydrALAZINE HCL 10 MG TABLET PO SCH ×3 (08:26→21:00)
[2018-12-08] MEDS: PANTOPRAZOLE SODIUM 40 MG DR TABLET PO SCH (08:26)
[2018-12-08] MEDS: FUROSEMIDE 40 MG TABLET PO SCH (08:26)
[2018-12-08] MEDS: CHOLECALCIFEROL (VIT D3) 2,000 UNITS TABLET PO SCH (08:26)
[2018-12-08] MEDS: LEVOTHYROXINE SODIUM 75 MCG TABLET PO SCH (08:27)
[2018-12-08] MEDS: ASPIRIN 81 MG CHEWABLE TABLET PO SCH (08:27)
[2018-12-08] MEDS: METOPROLOL SUCCINATE 50 MG ER TABLET PO SCH ×2 (08:27→20:12)
[2018-12-08] MEDS: AUSTEDO 9 MG PO SCH ×2 (08:28→20:12)
[2018-12-08] MEDS: HEPARIN SODIUM,PORCINE 5,000 UNITS/ML VIAL SQ SCH ×3 (08:29→23:28)
[2018-12-08] MEDS: VANCOMYCIN HCL 1 GM/D5% WATER 200 ML IV SCH ×3 (08:29→23:29)
[2018-12-08] MEDS: ClonazePAM 1 MG TABLET PO SCH ×2 (08:33→20:13)
[2018-12-08] MEDS: DOCUSATE SODIUM 100 MG CAPSULE PO SCH ×2 (08:34→21:00)
[2018-12-08] MEDS ORDERED: VARENICLINE TARTRATE 1 MG TABLET PO SCH (10:30)
[2018-12-08] MEDS ORDERED: HYDROmorphone 2 MG/ML SYRINGE IVP ONE (10:30)
[2018-12-08 11:26] VITALS: BP 131/78
[2018-12-08] MEDS ORDERED: DIPH25 PO (11:53)
[2018-12-08] MEDS: DULoxetine HCL 20 MG CAPSULE PO SCH (12:26)
[2018-12-08] MEDS: VARENICLINE TARTRATE 0.5 MG TABLET PO SCH ×2 (12:27→21:00)
[2018-12-08 16:16] VITALS: BP 145/85
[2018-12-08] MEDS: RAMIPRIL 10 MG CAPSULE PO SCH (20:12)
[2018-12-08 20:19] VITALS: BP 139/68
[2018-12-08 23:15] VITALS: BP 150/73
[2018-12-08] MEDS: HYDROmorphone 2 MG/ML SYRINGE IVP PRN (23:28)
[2018-12-09] MEDS: HydrALAZINE HCL 25 MG TABLET PO SCH ×2 (01:21→08:41)
[2018-12-09] MEDS: ONDANSETRON HCL 4 MG/2 ML VIAL IVP PRN (01:21)
[2018-12-09 01:27] VITALS: BP 133/69
[2018-12-09 03:30] VITALS: BP 126/87
[2018-12-09] MEDS: OxyCODONE HCL/ACETAMINOPHEN 10-325 MG TABLET PO PRN ×2 (05:43→14:53)
[2018-12-09] MEDS: LEVOTHYROXINE SODIUM 75 MCG TABLET PO SCH (05:43)
[2018-12-09 05:49] LABS: BASOPHILS % (AUTO) 0.9 % (0.0-2.0); EOSINOPHILS % (AUTO) 3.4 % (1.0-6.0); HEMATOCRIT 32.5 % (36-46); HEMOGLOBIN 10.7 g/dL (12.0-16.0); LYMPHOCYTES # (AUTO) 2.4 K/uL (1.0-4.8); LYMPHOCYTES % (AUTO) 28.4 % (22.0-44.0); MEAN CORPUSCULAR HEMOGLOBIN 28.7 pg (26.0-34.0); MEAN CORPUSCULAR VOLUME 87 fL (80-100); MONOCYTES # (AUTO) 0.6 K/uL (0.1-1.0); MONOCYTES % (AUTO) 6.6 % (2.0-9.0); NEUTROPHILS # (AUTO) 5.1 K/uL (1.8-7.7); NEUTROPHILS % (AUTO) 60.7 % (40.0-70.0); PLATELET COUNT (AUTO) 283 K/uL (150-450); RED BLOOD CELL COUNT(AUTO) 3.73 MIL/uL (4.00-5.20); RED CELL DISTRIBUTION WIDTH 14.1 % (11.5-14.5)
[2018-12-09 06:12] LABS: CREATININE 1.13 mg/dL (0.60-1.30); POTASSIUM 3.8 mmol/L (3.5-5.1)
[2018-12-09 07:27] VITALS: BP 153/73
[2018-12-09] MEDS: DOCUSATE SODIUM 100 MG CAPSULE PO SCH (08:39)
[2018-12-09] MEDS: VANCOMYCIN HCL 1 GM/D5% WATER 200 ML IV SCH (08:39)
[2018-12-09] MEDS: FUROSEMIDE 40 MG TABLET PO SCH (08:40)
[2018-12-09] MEDS: ClonazePAM 1 MG TABLET PO SCH (08:40)
[2018-12-09] MEDS: AUSTEDO 9 MG PO SCH (08:40)
[2018-12-09] MEDS: PANTOPRAZOLE SODIUM 40 MG DR TABLET PO SCH (08:40)
[2018-12-09] MEDS: HEPARIN SODIUM,PORCINE 5,000 UNITS/ML VIAL SQ SCH (08:40)
[2018-12-09] MEDS: ASPIRIN 81 MG CHEWABLE TABLET PO SCH (08:40)
[2018-12-09] MEDS: DULoxetine HCL 20 MG CAPSULE PO SCH (08:41)
[2018-12-09] MEDS: VARENICLINE TARTRATE 0.5 MG TABLET PO SCH (08:41)
[2018-12-09] MEDS: METOPROLOL SUCCINATE 50 MG ER TABLET PO SCH (08:41)
[2018-12-09] MEDS: HydrALAZINE HCL 10 MG TABLET PO SCH (08:42)
[2018-12-09] MEDS: CHOLECALCIFEROL (VIT D3) 2,000 UNITS TABLET PO SCH (08:42)
[2018-12-09] MEDS: HYDROmorphone 2 MG/ML SYRINGE IVP PRN (11:33)
[2018-12-09 12:04] VITALS: BP 129/59
[2018-12-09] MEDS ORDERED: HYDR-2924 PO (13:26)
[2018-12-09] MEDS ORDERED: LEVO500 PO (13:27)
== END 2018-12-09 16:20 | disposition home health service (06) | DRG 603 ==
LOC: EMS 19:16 → 6N 20:00
PROVIDERS: ADMIT Internal Medicine; ATTEND Internal Medicine
DX: L03.116 Cellulitis of left lower limb (principal); J96.10 Chronic respiratory failure, unspecified whether with hypoxia or hypercapnia; L03.115 Cellulitis of right lower limb; J44.9 Chronic obstructive pulmonary disease, unspecified; I10 Essential (primary) hypertension; E78.00 Pure hypercholesterolemia, unspecified; F32.9 Major depressive disorder, single episode, unspecified; E78.5 Hyperlipidemia, unspecified; F20.9 Schizophrenia, unspecified; F42.9 Obsessive-compulsive disorder, unspecified; G89.29 Other chronic pain; F41.9 Anxiety disorder, unspecified; M19.90 Unspecified osteoarthritis, unspecified site; I89.0 Lymphedema, not elsewhere classified; M79.7 Fibromyalgia; Z82.49 Family history of ischemic heart disease and other diseases of the circulatory system; Z86.73 Personal history of transient ischemic attack (TIA), and cerebral infarction without residual deficits; Z87.891 Personal history of nicotine dependence; Z90.710 Acquired absence of both cervix and uterus; Z88.6 Allergy status to analgesic agent; Z88.1 Allergy status to other antibiotic agents; Z88.2 Allergy status to sulfonamides; Z88.8 Allergy status to other drugs, medicaments and biological substances; Z79.899 Other long term (current) drug therapy; Z79.82 Long term (current) use of aspirin; Z90.49 Acquired absence of other specified parts of digestive tract
CPT/HCPCS: 73700; 83605; 85651; 86140; 87040; 93970; 97116; 97162; 97530; G0378; J0696; J1170; J1644; J1885; J2405; J3370; J3490; J7030; J7040; J7060

== ENCOUNTER 2019-05-07 11:11 | Emergency (ER) | payer MEDICARE, MEDICAID ==
[~2019-05-07] VITALS: Ht 162.6 cm; Wt 118.2 kg
[~2019-05-07 11:11] MED LIST changes: -CLON-570 PO; +DIPH25 PO; +DULO20CA30 PO; -DULO60CA44 PO; +HYDR-2924 PO; +NAPR-1025 PO; +OXYC-522 PO; +VARE1TAB22 PO
[2019-05-07] MEDS ORDERED: SODIUM CHLORIDE 0.9% 1,000 ML IV ONE (11:47)
[2019-05-07] MEDS ORDERED: HYDROCODONE/ACETAMINOPHEN 5-325 MG TABLET PO ONE (12:00)
[2019-05-07] MEDS ORDERED: MORPHINE SULFATE 2 MG/ML SYRINGE IVP ONE ×2 (12:00→15:00)
[2019-05-07 12:15] LABS: BASOPHILS % (AUTO) 0.9 % (0.0-2.0); EOSINOPHILS % (AUTO) 0.1 % (1.0-6.0); HEMATOCRIT 33.9 % (36-46); HEMOGLOBIN 10.8 g/dL (12.0-16.0); LYMPHOCYTES # (AUTO) 1.5 K/uL (1.0-4.8); LYMPHOCYTES % (AUTO) 12.2 % (22.0-44.0); MEAN CORPUSCULAR HEMOGLOBIN 28.1 pg (26.0-34.0); MEAN CORPUSCULAR HGB CONC 31.9 G/dL (31.0-37.0); MEAN CORPUSCULAR VOLUME 88 fL (80-100); MONOCYTES # (AUTO) 0.7 K/uL (0.1-1.0); MONOCYTES % (AUTO) 6.2 % (2.0-9.0); NEUTROPHILS # (AUTO) 9.8 K/uL (1.8-7.7); NEUTROPHILS % (AUTO) 80.6 % (40.0-70.0); PLATELET COUNT (AUTO) 309 K/uL (150-450); RED BLOOD CELL COUNT(AUTO) 3.84 MIL/uL (4.00-5.20); RED CELL DISTRIBUTION WIDTH 14.7 % (11.5-14.5)
[2019-05-07 12:49] LABS: CREATININE 1.37 mg/dL (0.60-1.30)
[2019-05-07 12:50] LABS: ALBUMIN 3.7 g/dL (3.4-5.0); BILIRUBIN,TOTAL 0.4 mg/dL (0.1-1.0); CALCIUM, TOTAL 9.4 mg/dL (8.8-10.5); TOTAL PROTEIN, SERUM 7.2 g/dL (6.4-8.2)
[2019-05-07 12:55] LABS: POTASSIUM 2.7 mmol/L (3.5-5.1)
[2019-05-07] MEDS ORDERED: SODIUM CHLORIDE 0.9% 100 ML ONE (12:57)
[2019-05-07] MEDS ORDERED: IOVERSOL 350 MG/ML 150 ML VIAL ONE (12:57)
[2019-05-07 13:32] LABS: APPEARANCE,URINE CLOUDY (CLEAR); BILIRUBIN,URINE NEGATIVE (NEGATIVE); GLUCOSE, URINE (UA) NEGATIVE (NEGATIVE); KETONES,URINE NEGATIVE (NEGATIVE); LEUKOCYTE ESTERASE ,URINE NEGATIVE (NEGATIVE); NITRATE,URINE NEGATIVE (NEGATIVE); OCCULT BLOOD,URINE LARGE (NEGATIVE); PH,URINE 6.5 (5.0-8.0); PROTEIN,URINE NEGATIVE (NEGATIVE); UROBILINOGEN,URINE 0.2 mg/dL (<=1.0)
[2019-05-07] MEDS ORDERED: POTASSIUM CHLORIDE 20 MEQ ER TABLET PO ONE (13:45)
[2019-05-07 14:03] LABS: BACTERIA,URINE None Seen /HPF (None Seen); RBC,URINE 51-100 /HPF (0-2); WBC,URINE 0-2 /HPF (0-5)
[2019-05-07 14:04] LABS: SQUAMOUS EPITHELIAL CELL,UR Moderate /LPF (None Seen)
[2019-05-07 15:35] VITALS: BP 141/78
[2019-05-07] MEDS ORDERED: KETOROLAC TROMETHAMINE 30 MG/ML VIAL IVP ONE (15:45)
[2019-05-07] MEDS ORDERED: ONDANSETRON HCL 4 MG/2 ML VIAL IVP ONE (15:45)
== END 2019-05-07 16:11 | disposition home or self-care (01) ==
LOC: EMS 11:13
DX: N20.9 Urinary calculus, unspecified (principal); E87.6 Hypokalemia; E78.00 Pure hypercholesterolemia, unspecified; I10 Essential (primary) hypertension; I89.0 Lymphedema, not elsewhere classified; J44.9 Chronic obstructive pulmonary disease, unspecified; M19.90 Unspecified osteoarthritis, unspecified site; F20.9 Schizophrenia, unspecified; F41.9 Anxiety disorder, unspecified; F32.9 Major depressive disorder, single episode, unspecified; Z86.73 Personal history of transient ischemic attack (TIA), and cerebral infarction without residual deficits; Z90.49 Acquired absence of other specified parts of digestive tract; Z90.710 Acquired absence of both cervix and uterus; Z87.891 Personal history of nicotine dependence; Z79.899 Other long term (current) drug therapy; Z88.2 Allergy status to sulfonamides; Z88.5 Allergy status to narcotic agent; Z88.1 Allergy status to other antibiotic agents; Z88.8 Allergy status to other drugs, medicaments and biological substances
CPT/HCPCS: 36415; 74177; 80053; 81001; 83690; 84702; 85025; 96374; 96375; 96376; 99284; J1885; J2270; J2405; J7050; Q9967

== ENCOUNTER 2019-08-05 10:47 | Emergency (ER) | payer MEDICARE, MEDICAID ==
[~2019-08-05] VITALS: Ht 162.6 cm; Wt 109.1 kg
[2019-08-05] MEDS ORDERED: KETOROLAC TROMETHAMINE 30 MG/ML VIAL IVP ONE (11:45)
[2019-08-05] MEDS ORDERED: SODIUM CHLORIDE 0.9% 1,000 ML IV ONE (11:45)
[2019-08-05 12:15] LABS: APPEARANCE,URINE CLEAR (CLEAR); BILIRUBIN,URINE NEGATIVE (NEGATIVE); GLUCOSE, URINE (UA) NEGATIVE (NEGATIVE); KETONES,URINE NEGATIVE (NEGATIVE); LEUKOCYTE ESTERASE ,URINE NEGATIVE (NEGATIVE); NITRATE,URINE NEGATIVE (NEGATIVE); OCCULT BLOOD,URINE NEGATIVE (NEGATIVE); PROTEIN,URINE NEGATIVE (NEGATIVE); UROBILINOGEN,URINE 0.2 mg/dL (<=1.0)
[2019-08-05] MEDS ORDERED: MORPHINE SULFATE 4 MG/ML SYRINGE IVP ONE (12:45)
[2019-08-05 12:47] LABS: BASOPHILS % (AUTO) 0.8 % (0.0-2.0); EOSINOPHILS % (AUTO) 1.6 % (1.0-6.0); HEMATOCRIT 35.7 % (36-46); HEMOGLOBIN 11.6 g/dL (12.0-16.0); LYMPHOCYTES # (AUTO) 1.3 K/uL (1.0-4.8); LYMPHOCYTES % (AUTO) 12.7 % (22.0-44.0); MEAN CORPUSCULAR HEMOGLOBIN 27.6 pg (26.0-34.0); MEAN CORPUSCULAR HGB CONC 32.4 G/dL (31.0-37.0); MEAN CORPUSCULAR VOLUME 85 fL (80-100); MONOCYTES # (AUTO) 0.5 K/uL (0.1-1.0); NEUTROPHILS # (AUTO) 8.2 K/uL (1.8-7.7); NEUTROPHILS % (AUTO) 79.9 % (40.0-70.0); PLATELET COUNT (AUTO) 294 K/uL (150-450); RED CELL DISTRIBUTION WIDTH 14.3 % (11.5-14.5)
[2019-08-05] MEDS ORDERED: ONDANSETRON HCL 4 MG/2 ML VIAL IVP ONE (13:00)
[2019-08-05 13:02] LABS: ALANINE AMINOTRANSFERASE 30 U/L (12-78); ALBUMIN 3.2 g/dL (3.4-5.0); ALKALINE PHOSPHATASE 81 U/L (46-116); ANION GAP 8 mmol/L (8-16); ASPARTATE AMINOTRANSFERASE 41 U/L (15-37); BILIRUBIN,TOTAL 0.3 mg/dL (0.1-1.0); CALCIUM, TOTAL 8.6 mg/dL (8.8-10.5); CARBON DIOXIDE 32 mmol/L (22-29); CHLORIDE 101 mmol/L (98-107); CREATININE 0.91 mg/dL (0.60-1.30); GLOMERULAR FILTR. RATE CALC > 60 mL/min (>60); GLUCOSE,RANDOM 111 mg/dL (70-110); SODIUM SERUM 141 mmol/L (136-145); TOTAL PROTEIN, SERUM 7.5 g/dL (6.4-8.2); UREA NITROGEN, BLOOD 9 mg/dL (7-18)
[2019-08-05 13:06] LABS: POTASSIUM 2.9 mmol/L (3.5-5.1)
[2019-08-05] MEDS ORDERED: POTASSIUM CHLORIDE 20 MEQ ER TABLET PO PRN (13:15)
[2019-08-05] MEDS ORDERED: POTASSIUM CHL 10 MEQ/WATER 50 ML IV PRN (13:15)
[2019-08-05] MEDS: ACETAMINOPHEN 325 MG TABLET PO ONE ×2 (13:56→13:57)
[2019-08-05 14:10] VITALS: BP 137/87
[2019-08-05] MEDS ORDERED: POTASSIUM CHLORIDE 20 MEQ ER TABLET PO ONE (14:30)
== END 2019-08-05 15:15 | disposition home or self-care (01) ==
LOC: EMS 10:49
DX: E87.6 Hypokalemia (principal); G89.29 Other chronic pain; M54.5 Low back pain; E78.00 Pure hypercholesterolemia, unspecified; I10 Essential (primary) hypertension; I25.10 Atherosclerotic heart disease of native coronary artery without angina pectoris; J44.9 Chronic obstructive pulmonary disease, unspecified; M19.90 Unspecified osteoarthritis, unspecified site; F20.9 Schizophrenia, unspecified; F41.9 Anxiety disorder, unspecified; F32.9 Major depressive disorder, single episode, unspecified; F42.9 Obsessive-compulsive disorder, unspecified; Z90.49 Acquired absence of other specified parts of digestive tract; Z90.710 Acquired absence of both cervix and uterus; Z86.73 Personal history of transient ischemic attack (TIA), and cerebral infarction without residual deficits; Z98.890 Other specified postprocedural states; Z87.891 Personal history of nicotine dependence; Z88.2 Allergy status to sulfonamides; Z88.1 Allergy status to other antibiotic agents; Z88.8 Allergy status to other drugs, medicaments and biological substances
CPT/HCPCS: 36415; 74176; 80053; 81003; 85025; 93005; 96374; 96375; 99284; J1885; J2270; J2405; J7030

== ENCOUNTER 2019-08-07 11:19 | Inpatient (IN) | payer MEDICARE, MEDICAID ==
[~2019-08-07] VITALS: Ht 162.6 cm; Wt 117.5 kg
[~2019-08-07 11:19] MED LIST changes: -CLON0.5T12 PO; +CLON0.5T4 PO; -DULO20CA30 PO; -OXYC-522 PO
[2019-08-07] MEDS ORDERED: SODIUM CHLORIDE 0.9% 1,000 ML IV ONE (12:00)
[2019-08-07] MEDS ORDERED: FAMOTIDINE 10 MG/ML 2 ML VIAL IVP ONE (12:00)
[2019-08-07] MEDS ORDERED: PB/HYOSCY/ATR/SCOP/LIDO/MAALOX 55 ML BOTTLE PO ONE (12:00)
[2019-08-07 12:26] LABS: BASOPHILS % (AUTO) 0.6 % (0.0-2.0); EOSINOPHILS % (AUTO) 1.9 % (1.0-6.0); HEMATOCRIT 35.1 % (36-46); HEMOGLOBIN 11.4 g/dL (12.0-16.0); LYMPHOCYTES # (AUTO) 1.3 K/uL (1.0-4.8); LYMPHOCYTES % (AUTO) 15.8 % (22.0-44.0); MEAN CORPUSCULAR HEMOGLOBIN 27.4 pg (26.0-34.0); MEAN CORPUSCULAR HGB CONC 32.4 G/dL (31.0-37.0); MEAN CORPUSCULAR VOLUME 85 fL (80-100); MONOCYTES # (AUTO) 0.4 K/uL (0.1-1.0); MONOCYTES % (AUTO) 4.9 % (2.0-9.0); NEUTROPHILS # (AUTO) 6.4 K/uL (1.8-7.7); NEUTROPHILS % (AUTO) 76.8 % (40.0-70.0); PLATELET COUNT (AUTO) 314 K/uL (150-450); RED BLOOD CELL COUNT(AUTO) 4.16 MIL/uL (4.00-5.20); RED CELL DISTRIBUTION WIDTH 14.8 % (11.5-14.5)
[2019-08-07 12:42] LABS: ALANINE AMINOTRANSFERASE 32 U/L (12-78); ALBUMIN 3.1 g/dL (3.4-5.0); ALKALINE PHOSPHATASE 84 U/L (46-116); ANION GAP 7 mmol/L (8-16); ASPARTATE AMINOTRANSFERASE 25 U/L (15-37); BILIRUBIN,TOTAL 0.3 mg/dL (0.1-1.0); CALCIUM, TOTAL 8.8 mg/dL (8.8-10.5); CARBON DIOXIDE 34 mmol/L (22-29); CHLORIDE 101 mmol/L (98-107); CREATININE 0.88 mg/dL (0.60-1.30); GLOMERULAR FILTR. RATE CALC > 60 mL/min (>60); GLUCOSE,RANDOM 150 mg/dL (70-110); LIPASE 140 U/L (73-393); SODIUM SERUM 142 mmol/L (136-145); TOTAL PROTEIN, SERUM 7.4 g/dL (6.4-8.2); UREA NITROGEN, BLOOD 7 mg/dL (7-18)
[2019-08-07 12:48] LABS: POTASSIUM 2.9 mmol/L (3.5-5.1)
[2019-08-07] MEDS ORDERED: POTASSIUM CHL 10 MEQ/WATER 50 ML IV PRN ×2 (13:00→14:45)
[2019-08-07] MEDS ORDERED: GLUCAGON,HUMAN RECOMBINANT 1 MG VIAL IM PRN (14:45)
[2019-08-07] MEDS ORDERED: POTASSIUM CHLORIDE 20 MEQ ER TABLET PO PRN (14:45)
[2019-08-07] MEDS ORDERED: INSULIN LISPRO 100 UNITS/ML SQ PRN ×2 (14:45)
[2019-08-07] MEDS ORDERED: DEXTROSE 50%-WATER 25 GM/50 ML SYRINGE IVP PRN (14:45)
[2019-08-07] MEDS ORDERED: MAGNESIUM HYDROXIDE SUSPENSION 30 ML UDCUP PO PRN (15:00)
[2019-08-07] MEDS ORDERED: ACETAMINOPHEN 325 MG TABLET PO PRN (15:00)
[2019-08-07] MEDS ORDERED: MAGNESIUM SULFATE 1 GM in DEXTROSE 5%-WATER 50 ML IV ONE (15:45)
[2019-08-07] MEDS ORDERED: HEPARIN SODIUM,PORCINE 5,000 UNITS/ML VIAL SQ SCH (16:00)
[2019-08-07] MEDS ORDERED: KETOROLAC TROMETHAMINE 30 MG/ML VIAL IVP ONE ×2 (19:30→22:00)
[2019-08-07] MEDS: DOCUSATE SODIUM 100 MG CAPSULE PO SCH (21:00)
[2019-08-07 21:44] LABS: ALANINE AMINOTRANSFERASE 25 U/L (12-78); ALBUMIN 2.6 g/dL (3.4-5.0); ALKALINE PHOSPHATASE 73 U/L (46-116); ANION GAP 6 mmol/L (8-16); ASPARTATE AMINOTRANSFERASE 17 U/L (15-37); BILIRUBIN,TOTAL 0.2 mg/dL (0.1-1.0); CALCIUM, TOTAL 8.5 mg/dL (8.8-10.5); CARBON DIOXIDE 33 mmol/L (22-29); CHLORIDE 105 mmol/L (98-107); CREATININE 0.93 mg/dL (0.60-1.30); GLOMERULAR FILTR. RATE CALC > 60 mL/min (>60); GLUCOSE,RANDOM 136 mg/dL (70-110); SODIUM SERUM 144 mmol/L (136-145); TOTAL PROTEIN, SERUM 6.3 g/dL (6.4-8.2); UREA NITROGEN, BLOOD 8 mg/dL (7-18)
[2019-08-07 21:55] LABS: POTASSIUM 2.9 mmol/L (3.5-5.1)
[2019-08-07] MEDS: POTASSIUM CHLORIDE 20 MEQ ER TABLET PO PRN (22:32)
[2019-08-07 22:54] VITALS: BP 140/75
[2019-08-08] MEDS: APIXABAN 5 MG TABLET PO SCH ×2 (00:12→11:02)
[2019-08-08] MEDS: POTASSIUM CHLORIDE 20 MEQ ER TABLET PO PRN ×2 (02:39→09:15)
[2019-08-08 04:30] VITALS: BP 132/75
[2019-08-08 08:13] VITALS: BP 154/70
[2019-08-08] MEDS: DOCUSATE SODIUM 100 MG CAPSULE PO SCH (09:00)
[2019-08-08] MEDS ORDERED: FAMOTIDINE 20 MG TABLET PO SCH (09:00)
[2019-08-08] MEDS ORDERED: ASPIRIN 81 MG CHEWABLE TABLET PO SCH (09:00)
[2019-08-08] MEDS ORDERED: POTA-9 PO (10:21)
[2019-08-08] MEDS ORDERED: MAGNESIUM OXIDE 400 MG TABLET PO ONE (10:30)
[2019-08-08 11:46] VITALS: BP 135/78
== END 2019-08-08 15:00 | disposition home or self-care (01) | DRG 694 ==
LOC: EMS 11:31 → 4E 19:51
PROVIDERS: ADMIT Internal Medicine; ATTEND Internal Medicine
DX: N20.0 Calculus of kidney (principal); E44.0 Moderate protein-calorie malnutrition; Z68.41 Body mass index [BMI] 40.0-44.9, adult; E66.01 Morbid (severe) obesity due to excess calories; E78.00 Pure hypercholesterolemia, unspecified; E83.42 Hypomagnesemia; I10 Essential (primary) hypertension; J44.9 Chronic obstructive pulmonary disease, unspecified; F42.9 Obsessive-compulsive disorder, unspecified; F20.9 Schizophrenia, unspecified; E87.6 Hypokalemia; M79.7 Fibromyalgia; Z90.710 Acquired absence of both cervix and uterus; Z87.442 Personal history of urinary calculi; Z86.73 Personal history of transient ischemic attack (TIA), and cerebral infarction without residual deficits; Z87.891 Personal history of nicotine dependence; Z86.711 Personal history of pulmonary embolism; Z86.718 Personal history of other venous thrombosis and embolism; Z79.01 Long term (current) use of anticoagulants; Z88.2 Allergy status to sulfonamides; Z88.8 Allergy status to other drugs, medicaments and biological substances
CPT/HCPCS: 74176; 74177; 83735; 84132; 93005; 96365; 96375; G0378; J1644; J1885; J3475; J3490; J7030; J7060

== ENCOUNTER → 2020-06-14 | Outpatient (CLI) | payer MEDICARE, MEDICAID ==
[~2020-06-14] MED LIST changes: +ASPI-728 PO; -ASPI81 PO; +CHOL200016 PO; -CHOL200059 PO; -DIPH25 PO; -HYDR-2924 PO; -METO-391 PO; -NAPR-1025 PO; +POTA-9 PO; -PROM25 PO; -RAMI10 PO; -VALB40CA PO; -VARE1TAB22 PO
[2020-06-14 11:20] LABS: BASOPHILS % (AUTO) 0.8 % (0.0-2.0); EOSINOPHILS % (AUTO) 2.4 % (1.0-6.0); HEMOGLOBIN 11.5 g/dL (12.0-16.0); LYMPHOCYTES # (AUTO) 1.5 K/uL (1.0-4.8); LYMPHOCYTES % (AUTO) 20.7 % (22.0-44.0); MEAN CORPUSCULAR HEMOGLOBIN 28.8 pg (26.0-34.0); MEAN CORPUSCULAR HGB CONC 32.8 G/dL (31.0-37.0); MEAN CORPUSCULAR VOLUME 88 fL (80-100); MONOCYTES # (AUTO) 0.3 K/uL (0.1-1.0); MONOCYTES % (AUTO) 3.9 % (2.0-9.0); NEUTROPHILS # (AUTO) 5.1 K/uL (1.8-7.7); NEUTROPHILS % (AUTO) 72.2 % (40.0-70.0); PLATELET COUNT (AUTO) 313 K/uL (150-450); RED BLOOD CELL COUNT(AUTO) 3.98 MIL/uL (4.00-5.20); RED CELL DISTRIBUTION WIDTH 16.2 % (11.5-14.5)
[2020-06-14 12:18] LABS: ALBUMIN 3.1 g/dL (3.4-5.0); BILIRUBIN,TOTAL 0.2 mg/dL (0.1-1.0); CALCIUM, TOTAL 9.2 mg/dL (8.8-10.5); CREATININE 1.1 mg/dL (0.60-1.30); POTASSIUM 3.1 mmol/L (3.5-5.1); TOTAL PROTEIN, SERUM 7.2 g/dL (6.4-8.2)
== END | disposition home or self-care (01) ==
LOC: LABPV 09:40
PROVIDERS: ATTEND Legal Medicine
DX: E11.65 Type 2 diabetes mellitus with hyperglycemia (principal); E11.59 Type 2 diabetes mellitus with other circulatory complications; E11.69 Type 2 diabetes mellitus with other specified complication; I50.9 Heart failure, unspecified

== ENCOUNTER 2021-01-08 12:59 | Inpatient (IN) | payer MEDICARE, MEDICAID, SELFPAY ==
[~2021-01-08] VITALS: Ht 162.6 cm; Wt 117.2 kg
[~2021-01-08 12:59] MED LIST changes: +APIX5TAB PO; +ASPI-1450 PO; -ASPI-728 PO; +BUPR300F3 PO; +BUSP10TA23 PO; +GABA-1181 PO; +PARO10TA89 PO; -POTA-9 PO; +POTA20TA83 PO; +PSYL575P22 PO; +RAMI10 PO; +VALB40CA2 PO
[2021-01-08] MEDS ORDERED: ACETAMINOPHEN 1000 MG/ISO-OSM 100 ML IV ONE (13:45)
[2021-01-08 14:19] LABS: BASOPHILS % (AUTO) 0.2 % (0.0-2.0); EOSINOPHILS % (AUTO) 0 % (1.0-6.0); HEMATOCRIT 26.6 % (36-46); HEMOGLOBIN 8.5 g/dL (12.0-16.0); LYMPHOCYTES # (AUTO) 0.5 K/uL (1.0-4.8); LYMPHOCYTES % (AUTO) 3.3 % (22.0-44.0); MEAN CORPUSCULAR HEMOGLOBIN 26.2 pg (26.0-34.0); MEAN CORPUSCULAR HGB CONC 31.9 G/dL (31.0-37.0); MEAN CORPUSCULAR VOLUME 82 fL (80-100); MONOCYTES # (AUTO) 0.7 K/uL (0.1-1.0); MONOCYTES % (AUTO) 4.6 % (2.0-9.0); PLATELET COUNT (AUTO) 416 K/uL (150-450); RED BLOOD CELL COUNT(AUTO) 3.24 MIL/uL (4.00-5.20); RED CELL DISTRIBUTION WIDTH 16.1 % (11.5-14.5)
[2021-01-08 14:20] LABS: NEUTROPHILS % (AUTO) 91.9 % (40.0-70.0)
[2021-01-08 14:27] LABS: INR 1.1 (0.9-1.1); PROTHROMBIN TIME 11.4 SEC (9.4-11.6)
[2021-01-08 14:56] LABS: ALANINE AMINOTRANSFERASE 24 U/L (12-78); ALBUMIN 3.1 g/dL (3.4-5.0); ALKALINE PHOSPHATASE 104 U/L (46-116); ANION GAP 10 mmol/L (8-16); ASPARTATE AMINOTRANSFERASE 13 U/L (15-37); BILIRUBIN,TOTAL 0.4 mg/dL (0.1-1.0); CALCIUM, TOTAL 9.1 mg/dL (8.8-10.5); CARBON DIOXIDE 30 mmol/L (22-29); CHLORIDE 100 mmol/L (98-107); CREATINE KINASE, TOTAL ONLY 123 U/L (26-192); CREATININE 0.89 mg/dL (0.60-1.30); GLOMERULAR FILTR. RATE CALC > 60 mL/min (>60); GLUCOSE,RANDOM 147 mg/dL (70-110); LIPASE 96 U/L (73-393); SODIUM SERUM 140 mmol/L (136-145); TOTAL PROTEIN, SERUM 7.4 g/dL (6.4-8.2); UREA NITROGEN, BLOOD 11 mg/dL (7-18)
[2021-01-08 14:57] LABS: COVID AG,FIA SOURCE NASOPHARYNGEAL
[2021-01-08 14:59] LABS: TROPONIN I < 0.02 ng/mL (0.00-0.05)
[2021-01-08 15:07] LABS: B-TYPE NATRIURETIC PEPTIDE 13 pg/mL (0-100)
[2021-01-08 15:10] LABS: LACTIC ACID 3.4 mmol/L (0.4-2.0)
[2021-01-08 15:11] LABS: AMMONIA < 10 umol/L (11-32)
[2021-01-08 15:16] LABS: APPEARANCE,URINE CLEAR (CLEAR); BILIRUBIN,URINE NEGATIVE (NEGATIVE); GLUCOSE, URINE (UA) NEGATIVE (NEGATIVE); KETONES,URINE NEGATIVE (NEGATIVE); LEUKOCYTE ESTERASE ,URINE NEGATIVE (NEGATIVE); NITRATE,URINE NEGATIVE (NEGATIVE); OCCULT BLOOD,URINE TRACE (NEGATIVE); PROTEIN,URINE NEGATIVE (NEGATIVE); UROBILINOGEN,URINE 0.2 mg/dL (<=1.0)
[2021-01-08 15:20] LABS: ACETAMINOPHEN < 2 mcg/mL (10-30)
[2021-01-08 15:22] LABS: AMPHET/METH SCREEN,URINE NEGATIVE (NEGATIVE); BARBITURATE SCREEN, URINE NEGATIVE (NEGATIVE); BENZODIAZEPINES SCREEN,URINE NEGATIVE (NEGATIVE); CANNABINOID SCREEN,URINE NEGATIVE (NEGATIVE); COCAINE SCREEN,URINE NEGATIVE (NEGATIVE); METHADONE SCREEN, URINE NEGATIVE (NEGATIVE); OPIATE SCREEN,URINE NEGATIVE (NEGATIVE); PHENCYCLIDINE SCREEN,URINE NEGATIVE (NEGATIVE)
[2021-01-08 15:24] LABS: BACTERIA,URINE Rare /HPF (None Seen); RBC,URINE 0-2 /HPF (0-2); SQUAMOUS EPITHELIAL CELL,UR Few /LPF (None Seen); WBC,URINE 0-2 /HPF (0-5)
[2021-01-08] MEDS ORDERED: SODIUM CHLORIDE 0.9% 1,000 ML IV ONE ×2 (15:30→15:45)
[2021-01-08] MEDS ORDERED: POTASSIUM CHLORIDE 10% 40 MEQ/30 ML LIQUID UDCUP PO ONE (15:45)
[2021-01-08 15:59] LABS: D-DIMER 0.37 mg/L FEU (0.00-0.50)
[2021-01-08 16:11] LABS: FERRITIN 47 ng/mL (8-252); LACTATE DEHYDROGENASE 201 U/L (81-234)
[2021-01-08] MEDS ORDERED: PIPERACILLIN/TAZO 3.375 GM/D5W 50 ML IV SCH (16:30)
[2021-01-08] MEDS ORDERED: VANCOMYCIN HCL 1.5 GM in DEXTROSE 5%-WATER 250 ML IV ONE (16:30)
[2021-01-08 16:45] LABS: SALICYLATE < 2.8 mg/dL (2.8-20.0)
[2021-01-08 17:11] VITALS: BP 150/81
[2021-01-08] MEDS ORDERED: 0.9% SODIUM CHLORIDE 10 ML SYRINGE IVP PRN (18:30)
[2021-01-08] MEDS ORDERED: OxyCODONE HCL/ACETAMINOPHEN 5-325 MG TABLET PO PRN (18:30)
[2021-01-08] MEDS ORDERED: MAGNESIUM HYDROXIDE SUSPENSION 30 ML UDCUP PO PRN (18:30)
[2021-01-08] MEDS ORDERED: DEXTROSE 50%-WATER 25 GM/50 ML SYRINGE IVP PRN (19:30)
[2021-01-08] MEDS: FUROSEMIDE 40 MG TABLET PO SCH (20:00)
[2021-01-08] MEDS: ASPIRIN 81 MG CHEWABLE TABLET PO SCH (20:00)
[2021-01-08] MEDS: CHOLECALCIFEROL (VIT D3) 2,000 UNITS [50 MCG] TABLET PO SCH (20:00)
[2021-01-08] MEDS: LEVOTHYROXINE SODIUM 75 MCG TABLET PO SCH (20:00)
[2021-01-08 20:40] VITALS: BP 127/70
[2021-01-08] MEDS: APIXABAN 5 MG TABLET PO SCH (21:00)
[2021-01-08] MEDS: RAMIPRIL 5 MG CAPSULE PO SCH (21:00)
[2021-01-08] MEDS: POTASSIUM CHLORIDE 20 MEQ ER TABLET PO SCH (21:00)
[2021-01-08] MEDS: DOCUSATE SODIUM 100 MG CAPSULE PO SCH (21:00)
[2021-01-08] MEDS: SODIUM CHLORIDE 0.9% 1,000 ML IV SCH (22:00)
[2021-01-08] MEDS: ACETAMINOPHEN 650 MG RECTAL SUPPOSITORY PR PRN (22:00)
[2021-01-08] MEDS: INSULIN LISPRO 100 UNITS/ML SQ PRN (22:01)
[2021-01-09] MEDS ORDERED: VANCOMYCIN HCL 1.25 GM in DEXTROSE 5%-WATER 250 ML IV SCH ×2
[2021-01-09] MEDS: PIPERACILLIN/TAZO 3.375 GM/D5W 50 ML IV SCH ×4 (00:07→20:40)
[2021-01-09 00:32] VITALS: BP 127/83
[2021-01-09 04:55] VITALS: BP 128/76
[2021-01-09 05:39] LABS: GLUCOMETER DEV NAME(LOC) 5N.3; GLUCOSE,POINT OF CARE 168 MG/DL (70-110)
[2021-01-09 05:49] LABS: BASOPHILS % (AUTO) 0.3 % (0.0-2.0); EOSINOPHILS % (AUTO) 0 % (1.0-6.0); HEMATOCRIT 24.5 % (36-46); HEMOGLOBIN 7.8 g/dL (12.0-16.0); LYMPHOCYTES # (AUTO) 0.8 K/uL (1.0-4.8); LYMPHOCYTES % (AUTO) 5.8 % (22.0-44.0); MEAN CORPUSCULAR HEMOGLOBIN 26.2 pg (26.0-34.0); MEAN CORPUSCULAR HGB CONC 31.8 G/dL (31.0-37.0); MEAN CORPUSCULAR VOLUME 82 fL (80-100); MONOCYTES # (AUTO) 0.7 K/uL (0.1-1.0); MONOCYTES % (AUTO) 4.8 % (2.0-9.0); NEUTROPHILS # (AUTO) 12.8 K/uL (1.8-7.7); PLATELET COUNT (AUTO) 335 K/uL (150-450); RED BLOOD CELL COUNT(AUTO) 2.97 MIL/uL (4.00-5.20); RED CELL DISTRIBUTION WIDTH 16.3 % (11.5-14.5)
[2021-01-09] MEDS: LEVOTHYROXINE SODIUM 75 MCG TABLET PO SCH (06:08)
[2021-01-09 06:10] LABS: ALANINE AMINOTRANSFERASE 16 U/L (12-78); ALBUMIN 2.5 g/dL (3.4-5.0); ALKALINE PHOSPHATASE 93 U/L (46-116); ANION GAP 8 mmol/L (8-16); ASPARTATE AMINOTRANSFERASE 13 U/L (15-37); BILIRUBIN,TOTAL 0.5 mg/dL (0.1-1.0); CALCIUM, TOTAL 8.4 mg/dL (8.8-10.5); CARBON DIOXIDE 30 mmol/L (22-29); CHLORIDE 102 mmol/L (98-107); CREATININE 0.85 mg/dL (0.60-1.30); GLOMERULAR FILTR. RATE CALC > 60 mL/min (>60); GLUCOSE,RANDOM 128 mg/dL (70-110); SODIUM SERUM 140 mmol/L (136-145); TOTAL PROTEIN, SERUM 6.6 g/dL (6.4-8.2); UREA NITROGEN, BLOOD 8 mg/dL (7-18)
[2021-01-09 06:26] LABS: NEUTROPHILS % (AUTO) 89.1 % (40.0-70.0)
[2021-01-09 06:33] LABS: POTASSIUM 2.8 mmol/L (3.5-5.1)
[2021-01-09 06:37] LABS: C-REACTIVE PROTEIN QUANT 20.48 mg/dL (0.00-0.30); FERRITIN 72 ng/mL (8-252)
[2021-01-09] MEDS: ACETAMINOPHEN 650 MG RECTAL SUPPOSITORY PR PRN (06:42)
[2021-01-09 08:00] VITALS: BP 141/74
[2021-01-09] MEDS ORDERED: POTASSIUM CHLORIDE 20 MEQ ER TABLET PO PRN (08:00)
[2021-01-09] MEDS ORDERED: POTASSIUM CHL 10 MEQ/WATER 50 ML IV PRN ×3 (08:00)
[2021-01-09] MEDS: POTASSIUM CHLORIDE 20 MEQ ER TABLET PO SCH ×2 (08:12→21:00)
[2021-01-09] MEDS: APIXABAN 5 MG TABLET PO SCH ×2 (08:12→21:00)
[2021-01-09] MEDS: DOCUSATE SODIUM 100 MG CAPSULE PO SCH ×2 (08:12→21:00)
[2021-01-09] MEDS: FAMOTIDINE 10 MG/ML 2 ML VIAL IVP SCH (08:13)
[2021-01-09] MEDS: ASPIRIN 81 MG CHEWABLE TABLET PO SCH (08:13)
[2021-01-09] MEDS: CHOLECALCIFEROL (VIT D3) 2,000 UNITS [50 MCG] TABLET PO SCH (08:13)
[2021-01-09] MEDS: POTASSIUM CHL 10 MEQ/WATER 50 ML IV PRN ×4 (08:38→14:23)
[2021-01-09] MEDS: FUROSEMIDE 40 MG TABLET PO SCH (09:00)
[2021-01-09] MEDS: INSULIN LISPRO 100 UNITS/ML SQ PRN (11:46)
[2021-01-09 11:53] VITALS: BP 138/74
[2021-01-09] MEDS: ACETAMINOPHEN 325 MG TABLET PO PRN (12:18)
[2021-01-09 14:57] LABS: GLUCOMETER DEV NAME(LOC) 5S.1; GLUCOSE,POINT OF CARE 175 MG/DL (70-110)
[2021-01-09 16:11] VITALS: BP 136/89
[2021-01-09] MEDS: VANCOMYCIN HCL 1.25 GM in DEXTROSE 5%-WATER 250 ML IV SCH ×2 (17:56→21:35)
[2021-01-09] MEDS: POTASSIUM CHLORIDE 20 MEQ ER TABLET PO PRN (18:28)
[2021-01-09 18:56] LABS: GLUCOMETER DEV NAME(LOC) 5S.2B; GLUCOSE,POINT OF CARE 122 MG/DL (70-110)
[2021-01-09 19:59] VITALS: BP 157/58
[2021-01-09] MEDS: RAMIPRIL 5 MG CAPSULE PO SCH (21:00)
[2021-01-10] VITALS (7 sets, daily range): BP systolic 137–148; BP diastolic 71–86
[2021-01-10] MEDS: PIPERACILLIN/TAZO 3.375 GM/D5W 50 ML IV SCH ×4 (00:18→18:23)
[2021-01-10] MEDS: POTASSIUM CHL 10 MEQ/WATER 50 ML IV PRN ×4 (01:18→05:20)
[2021-01-10 01:27] LABS: GLUCOMETER DEV NAME(LOC) 5S.2B; GLUCOSE,POINT OF CARE 135 MG/DL (70-110)
[2021-01-10] MEDS: SODIUM CHLORIDE 0.9% 1,000 ML IV SCH (03:57)
[2021-01-10 06:15] LABS: BASOPHILS % (AUTO) 0.3 % (0.0-2.0); EOSINOPHILS % (AUTO) 0.9 % (1.0-6.0); HEMATOCRIT 24.1 % (36-46); HEMOGLOBIN 7.7 g/dL (12.0-16.0); LYMPHOCYTES # (AUTO) 1.2 K/uL (1.0-4.8); LYMPHOCYTES % (AUTO) 9.7 % (22.0-44.0); MEAN CORPUSCULAR HEMOGLOBIN 26.2 pg (26.0-34.0); MEAN CORPUSCULAR VOLUME 82 fL (80-100); MONOCYTES # (AUTO) 0.6 K/uL (0.1-1.0); MONOCYTES % (AUTO) 5.2 % (2.0-9.0); NEUTROPHILS # (AUTO) 10.5 K/uL (1.8-7.7); NEUTROPHILS % (AUTO) 83.9 % (40.0-70.0); PLATELET COUNT (AUTO) 340 K/uL (150-450); RED BLOOD CELL COUNT(AUTO) 2.96 MIL/uL (4.00-5.20); RED CELL DISTRIBUTION WIDTH 16.6 % (11.5-14.5)
[2021-01-10 06:26] LABS: HEMOGLOBIN A1C 5.9 % (3.8-5.6)
[2021-01-10] MEDS: LEVOTHYROXINE SODIUM 75 MCG TABLET PO SCH (06:30)
[2021-01-10 07:44] LABS: GLUCOMETER DEV NAME(LOC) 5S.2B; GLUCOSE,POINT OF CARE 106 MG/DL (70-110)
[2021-01-10] MEDS: APIXABAN 5 MG TABLET PO SCH ×2 (08:11→21:13)
[2021-01-10] MEDS: ASPIRIN 81 MG CHEWABLE TABLET PO SCH (08:11)
[2021-01-10] MEDS: FUROSEMIDE 40 MG TABLET PO SCH (08:11)
[2021-01-10] MEDS: CHOLECALCIFEROL (VIT D3) 2,000 UNITS [50 MCG] TABLET PO SCH (08:11)
[2021-01-10] MEDS: POTASSIUM CHLORIDE 20 MEQ ER TABLET PO SCH ×2 (08:12→21:13)
[2021-01-10] MEDS: DOCUSATE SODIUM 100 MG CAPSULE PO SCH ×2 (08:12→21:13)
[2021-01-10] MEDS: FAMOTIDINE 10 MG/ML 2 ML VIAL IVP SCH (08:13)
[2021-01-10] MEDS: VANCOMYCIN HCL 1.25 GM in DEXTROSE 5%-WATER 250 ML IV SCH ×2 (08:20→20:57)
[2021-01-10 08:28] LABS: LACTIC ACID 1.2 mmol/L (0.4-2.0)
[2021-01-10 08:40] LABS: ALANINE AMINOTRANSFERASE 22 U/L (12-78); ALBUMIN 2.4 g/dL (3.4-5.0); ALKALINE PHOSPHATASE 90 U/L (46-116); ANION GAP 10 mmol/L (8-16); ASPARTATE AMINOTRANSFERASE 16 U/L (15-37); BILIRUBIN,TOTAL 0.4 mg/dL (0.1-1.0); C-REACTIVE PROTEIN QUANT 23.03 mg/dL (0.00-0.30); CALCIUM, TOTAL 8.3 mg/dL (8.8-10.5); CARBON DIOXIDE 27 mmol/L (22-29); CHLORIDE 104 mmol/L (98-107); CHOL/HDL RATIO 2.9 (3.9-5.7); CHOLESTEROL 104 mg/dL (131-200); CREATINE KINASE, TOTAL ONLY 90 U/L (26-192); CREATININE 0.83 mg/dL (0.60-1.30); FERRITIN 101 ng/mL (8-252); FREE T4 (FREE THYROXINE) 1.41 ng/dL (0.76-1.46); GLOMERULAR FILTR. RATE CALC > 60 mL/min (>60); GLUCOSE,RANDOM 105 mg/dL (70-110); HDL CHOLESTEROL 36 mg/dL (40-60); LDL CHOL (CALC.) 50 mg/dL (0-130); POTASSIUM 3.3 mmol/L (3.5-5.1); SODIUM SERUM 141 mmol/L (136-145); THYROID STIMULATING HORMONE 0.69 uIU/mL (0.36-3.74); TOTAL PROTEIN, SERUM 6.4 g/dL (6.4-8.2); TRIGLYCERIDES 91 mg/dL (15-150); UREA NITROGEN, BLOOD 6 mg/dL (7-18)
[2021-01-10 08:58] LABS: URIC ACID 2.4 mg/dL (2.6-7.2)
[2021-01-10] MEDS: OxyCODONE HCL/ACETAMINOPHEN 5-325 MG TABLET PO PRN (09:12)
[2021-01-10] MEDS: POTASSIUM CHLORIDE 20 MEQ ER TABLET PO PRN ×2 (10:44→18:29)
[2021-01-10 13:07] LABS: GLUCOMETER DEV NAME(LOC) 5N.3; GLUCOSE,POINT OF CARE 115 MG/DL (70-110)
[2021-01-10] MEDS ORDERED: MORPHINE SULFATE 2 MG/ML SYRINGE IVP PRN (14:45)
[2021-01-10 17:54] LABS: GLUCOMETER DEV NAME(LOC) 5S.1; GLUCOSE,POINT OF CARE 122 MG/DL (70-110)
[2021-01-10] MEDS: ACETAMINOPHEN 325 MG TABLET PO PRN (18:24)
[2021-01-10] MEDS: RAMIPRIL 5 MG CAPSULE PO SCH (21:13)
[2021-01-11] VITALS (7 sets, daily range): BP systolic 134–158; BP diastolic 72–85
[2021-01-11] MEDS: PIPERACILLIN/TAZO 3.375 GM/D5W 50 ML IV SCH ×4 (00:56→18:58)
[2021-01-11] MEDS: ONDANSETRON HCL 4 MG/2 ML VIAL IVP PRN (00:56)
[2021-01-11] MEDS: POTASSIUM CHLORIDE 20 MEQ ER TABLET PO PRN ×2 (00:56→13:21)
[2021-01-11] MEDS: POTASSIUM CHL 10 MEQ/WATER 50 ML IV PRN ×8 (01:54→16:59)
[2021-01-11 03:55] LABS: GLUCOMETER DEV NAME(LOC) 5N.1B; GLUCOSE,POINT OF CARE 113 MG/DL (70-110)
[2021-01-11] MEDS: MORPHINE SULFATE 2 MG/ML SYRINGE IVP PRN ×2 (05:11→22:44)
[2021-01-11] MEDS: VITAMINS A & D 113 GM OINTMENT TP SCH ×2 (05:20→08:41)
[2021-01-11] MEDS: MUPIROCIN CALCIUM 2% 15 GM CREAM TP SCH ×2 (05:20→08:41)
[2021-01-11 05:31] LABS: BASOPHILS % (AUTO) 0.3 % (0.0-2.0); EOSINOPHILS % (AUTO) 0.8 % (1.0-6.0); HEMATOCRIT 28.4 % (36-46); HEMOGLOBIN 8.9 g/dL (12.0-16.0); LYMPHOCYTES # (AUTO) 1.1 K/uL (1.0-4.8); LYMPHOCYTES % (AUTO) 9.5 % (22.0-44.0); MEAN CORPUSCULAR HEMOGLOBIN 25.5 pg (26.0-34.0); MEAN CORPUSCULAR HGB CONC 31.2 G/dL (31.0-37.0); MEAN CORPUSCULAR VOLUME 82 fL (80-100); MONOCYTES # (AUTO) 0.5 K/uL (0.1-1.0); NEUTROPHILS # (AUTO) 9.7 K/uL (1.8-7.7); PLATELET COUNT (AUTO) 446 K/uL (150-450); RED BLOOD CELL COUNT(AUTO) 3.47 MIL/uL (4.00-5.20); RED CELL DISTRIBUTION WIDTH 16.7 % (11.5-14.5)
[2021-01-11 06:25] LABS: NEUTROPHILS % (AUTO) 85.4 % (40.0-70.0)
[2021-01-11 06:31] LABS: ALANINE AMINOTRANSFERASE 23 U/L (12-78); ALBUMIN 2.4 g/dL (3.4-5.0); ALKALINE PHOSPHATASE 102 U/L (46-116); ANION GAP 9 mmol/L (8-16); ASPARTATE AMINOTRANSFERASE 19 U/L (15-37); BILIRUBIN,TOTAL 0.4 mg/dL (0.1-1.0); C-REACTIVE PROTEIN QUANT 14.09 mg/dL (0.00-0.30); CALCIUM, TOTAL 8.5 mg/dL (8.8-10.5); CARBON DIOXIDE 24 mmol/L (22-29); CHLORIDE 103 mmol/L (98-107); CREATININE 0.73 mg/dL (0.60-1.30); FERRITIN 102 ng/mL (8-252); GLOMERULAR FILTR. RATE CALC > 60 mL/min (>60); GLUCOSE,RANDOM 122 mg/dL (70-110); POTASSIUM 3.4 mmol/L (3.5-5.1); SODIUM SERUM 136 mmol/L (136-145); TOTAL PROTEIN, SERUM 6.8 g/dL (6.4-8.2); UREA NITROGEN, BLOOD 7 mg/dL (7-18); VANCOMYCIN,RANDOM 15.2 mcg/mL (25.0-50.0)
[2021-01-11 07:21] LABS: GLUCOMETER DEV NAME(LOC) 5N.1B; GLUCOSE,POINT OF CARE 118 MG/DL (70-110)
[2021-01-11] MEDS: LEVOTHYROXINE SODIUM 75 MCG TABLET PO SCH (07:22)
[2021-01-11] MEDS: CHOLECALCIFEROL (VIT D3) 2,000 UNITS [50 MCG] TABLET PO SCH (08:22)
[2021-01-11] MEDS: FAMOTIDINE 10 MG/ML 2 ML VIAL IVP SCH (08:22)
[2021-01-11] MEDS: ASPIRIN 81 MG CHEWABLE TABLET PO SCH (08:23)
[2021-01-11] MEDS: DOCUSATE SODIUM 100 MG CAPSULE PO SCH ×2 (08:23→21:00)
[2021-01-11] MEDS: POTASSIUM CHLORIDE 20 MEQ ER TABLET PO SCH ×2 (08:23→21:01)
[2021-01-11] MEDS: APIXABAN 5 MG TABLET PO SCH ×2 (08:23→21:01)
[2021-01-11] MEDS: VANCOMYCIN HCL 1.25 GM in DEXTROSE 5%-WATER 250 ML IV SCH (08:39)
[2021-01-11] MEDS: FUROSEMIDE 40 MG TABLET PO SCH (08:41)
[2021-01-11 09:25] LABS: GLUCOMETER DEV NAME(LOC) 5N.3; GLUCOSE,POINT OF CARE 116 MG/DL (70-110)
[2021-01-11] MEDS: VANCOMYCIN HCL 1 GM/D5% WATER 200 ML IV SCH (16:00)
[2021-01-11] MEDS: OxyCODONE HCL/ACETAMINOPHEN 5-325 MG TABLET PO PRN (21:00)
[2021-01-11] MEDS: RAMIPRIL 5 MG CAPSULE PO SCH (21:00)
[2021-01-11] MEDS: LACTOBAC ACID/BULG/BIFID/THERM TABLET PO SCH (21:01)
[2021-01-11] MEDS: SODIUM CHLORIDE 0.9% 1,000 ML IV SCH (21:10)
[2021-01-12] MEDS: VANCOMYCIN HCL 1 GM/D5% WATER 200 ML IV SCH ×4 (00:27→23:35)
[2021-01-12] MEDS: PIPERACILLIN/TAZO 3.375 GM/D5W 50 ML IV SCH ×2 (00:27→05:50)
[2021-01-12 05:37] VITALS: BP 159/86
[2021-01-12] MEDS: LEVOTHYROXINE SODIUM 75 MCG TABLET PO SCH (05:51)
[2021-01-12] MEDS: MORPHINE SULFATE 2 MG/ML SYRINGE IVP PRN ×3 (05:51→18:19)
[2021-01-12 06:05] LABS: HEMATOCRIT 26.5 % (36-46); HEMOGLOBIN 8.6 g/dL (12.0-16.0); MEAN CORPUSCULAR HGB CONC 32.3 G/dL (31.0-37.0); MEAN CORPUSCULAR VOLUME 81 fL (80-100); PLATELET COUNT (AUTO) 498 K/uL (150-450); RED BLOOD CELL COUNT(AUTO) 3.29 MIL/uL (4.00-5.20); RED CELL DISTRIBUTION WIDTH 16.8 % (11.5-14.5)
[2021-01-12 06:10] LABS: BAND NEUTROPHILS % (MANUAL) 0 % (0-5)
[2021-01-12 06:26] LABS: EOSINOPHILS % (MANUAL) 1 % (1-6); LYMPHOCYTES % (MANUAL) 20 % (22-44); MONOCYTES % (MANUAL) 4 % (2-9); SEGMENTED NEUTROPHILS % 75 % (40-70)
[2021-01-12 06:28] LABS: ANION GAP 6 mmol/L (8-16); CARBON DIOXIDE 27 mmol/L (22-29); CHLORIDE 101 mmol/L (98-107); CREATININE 0.75 mg/dL (0.60-1.30); GLOMERULAR FILTR. RATE CALC > 60 mL/min (>60); GLUCOSE,RANDOM 118 mg/dL (70-110); SODIUM SERUM 134 mmol/L (136-145); UREA NITROGEN, BLOOD 7 mg/dL (7-18)
[2021-01-12 06:29] LABS: ALANINE AMINOTRANSFERASE 23 U/L (12-78); ALBUMIN 2.5 g/dL (3.4-5.0); ALKALINE PHOSPHATASE 96 U/L (46-116); ASPARTATE AMINOTRANSFERASE 17 U/L (15-37); BILIRUBIN,TOTAL 0.3 mg/dL (0.1-1.0); C-REACTIVE PROTEIN QUANT 7.88 mg/dL (0.00-0.30); CALCIUM, TOTAL 8.6 mg/dL (8.8-10.5); FERRITIN 92 ng/mL (8-252); TOTAL PROTEIN, SERUM 6.8 g/dL (6.4-8.2)
[2021-01-12 06:33] LABS: POTASSIUM 2.6 mmol/L (3.5-5.1)
[2021-01-12] MEDS: POTASSIUM CHL 10 MEQ/WATER 50 ML IV PRN ×4 (06:37→13:02)
[2021-01-12 08:03] VITALS: BP 153/69
[2021-01-12] MEDS: DOCUSATE SODIUM 100 MG CAPSULE PO SCH ×2 (09:00→20:18)
[2021-01-12] MEDS: APIXABAN 5 MG TABLET PO SCH ×2 (09:15→20:18)
[2021-01-12] MEDS: FUROSEMIDE 20 MG TABLET PO SCH (09:15)
[2021-01-12] MEDS: ASPIRIN 81 MG CHEWABLE TABLET PO SCH (09:15)
[2021-01-12] MEDS: CHOLECALCIFEROL (VIT D3) 2,000 UNITS [50 MCG] TABLET PO SCH (09:16)
[2021-01-12] MEDS: POTASSIUM CHLORIDE 20 MEQ ER TABLET PO SCH ×2 (09:16→20:39)
[2021-01-12] MEDS: LACTOBAC ACID/BULG/BIFID/THERM TABLET PO SCH ×2 (09:16→20:18)
[2021-01-12] MEDS: FAMOTIDINE 10 MG/ML 2 ML VIAL IVP SCH (09:17)
[2021-01-12] MEDS: VITAMINS A & D 113 GM OINTMENT TP SCH (09:18)
[2021-01-12] MEDS: MUPIROCIN CALCIUM 2% 15 GM CREAM TP SCH (09:18)
[2021-01-12] MEDS: ONDANSETRON HCL 4 MG/2 ML VIAL IVP PRN (09:20)
[2021-01-12 11:11] VITALS: BP 144/76
[2021-01-12] MEDS ORDERED: RAMIPRIL 10 MG CAPSULE PO SCH (12:00)
[2021-01-12] MEDS: RAMIPRIL 5 MG CAPSULE PO SCH (12:33)
[2021-01-12] MEDS ORDERED: GABAPENTIN 300 MG CAPSULE PO PRN (14:45)
[2021-01-12 15:45] VITALS: BP 132/75
[2021-01-12] MEDS: MetroNIDAZOLE 500 MG TABLET PO SCH ×2 (15:48→23:48)
[2021-01-12 16:25] LABS: C.DIFF GDH ANTIGEN, Stool Negative (Negative); C.DIFF TOXINS A&B, Stool Negative (Negative)
[2021-01-12] MEDS: POTASSIUM CHL 10 MEQ/WATER 50 ML IV SCH ×4 (19:06→23:35)
[2021-01-12 19:47] LABS: CREATININE,URINE RANDOM 20.5 mg/dL (30.0-125.0)
[2021-01-12] MEDS: OxyCODONE HCL/ACETAMINOPHEN 5-325 MG TABLET PO PRN (20:19)
[2021-01-12] MEDS: LOPERAMIDE HCL 2 MG CAPSULE PO PRN (20:23)
[2021-01-12 20:30] VITALS: BP 159/73
[2021-01-13] VITALS (7 sets, daily range): BP systolic 140–158; BP diastolic 71–89
[2021-01-13] MEDS: MORPHINE SULFATE 2 MG/ML SYRINGE IVP PRN ×4 (02:02→23:18)
[2021-01-13] MEDS: LOPERAMIDE HCL 2 MG CAPSULE PO PRN ×5 (02:12→23:23)
[2021-01-13 05:34] LABS: COVID AG,FIA SOURCE NASOPHARYNGEAL
[2021-01-13] MEDS: LEVOTHYROXINE SODIUM 75 MCG TABLET PO SCH (06:43)
[2021-01-13] MEDS: OxyCODONE HCL/ACETAMINOPHEN 5-325 MG TABLET PO PRN (06:50)
[2021-01-13] MEDS: DOCUSATE SODIUM 100 MG CAPSULE PO SCH ×2 (09:00→20:21)
[2021-01-13] MEDS: VANCOMYCIN HCL 1 GM/D5% WATER 200 ML IV SCH (09:06)
[2021-01-13] MEDS: MetroNIDAZOLE 500 MG TABLET PO SCH (09:07)
[2021-01-13] MEDS: FAMOTIDINE 10 MG/ML 2 ML VIAL IVP SCH (09:07)
[2021-01-13] MEDS: CHOLECALCIFEROL (VIT D3) 2,000 UNITS [50 MCG] TABLET PO SCH (09:07)
[2021-01-13] MEDS: POTASSIUM CHLORIDE 20 MEQ ER TABLET PO SCH ×2 (09:07→20:21)
[2021-01-13] MEDS: LACTOBAC ACID/BULG/BIFID/THERM TABLET PO SCH ×2 (09:07→20:20)
[2021-01-13] MEDS: APIXABAN 5 MG TABLET PO SCH ×2 (09:09→20:20)
[2021-01-13] MEDS: ASPIRIN 81 MG CHEWABLE TABLET PO SCH (09:09)
[2021-01-13] MEDS: FUROSEMIDE 20 MG TABLET PO SCH (09:09)
[2021-01-13] MEDS: MUPIROCIN CALCIUM 2% 15 GM CREAM TP SCH (09:10)
[2021-01-13] MEDS: VITAMINS A & D 113 GM OINTMENT TP SCH (09:10)
[2021-01-13] MEDS: CeFAZolin 2 GM/DEXTROSE 50 ML IV SCH ×2 (10:51→17:46)
[2021-01-13] MEDS: RAMIPRIL 5 MG CAPSULE PO SCH (13:05)
[2021-01-13] MEDS: ONDANSETRON HCL 4 MG/2 ML VIAL IVP PRN (16:44)
[2021-01-14] MEDS: CeFAZolin 2 GM/DEXTROSE 50 ML IV SCH ×2 (03:00→10:26)
[2021-01-14 04:42] VITALS: BP 143/75
[2021-01-14] MEDS: LEVOTHYROXINE SODIUM 75 MCG TABLET PO SCH (06:17)
[2021-01-14] MEDS: MORPHINE SULFATE 2 MG/ML SYRINGE IVP PRN (06:21)
[2021-01-14 06:58] LABS: ANION GAP 11 mmol/L (8-16); CALCIUM, TOTAL 8.9 mg/dL (8.8-10.5); CARBON DIOXIDE 28 mmol/L (22-29); CHLORIDE 101 mmol/L (98-107); CREATININE 0.82 mg/dL (0.60-1.30); GLOMERULAR FILTR. RATE CALC > 60 mL/min (>60); GLUCOSE,RANDOM 117 mg/dL (70-110); SODIUM SERUM 140 mmol/L (136-145); UREA NITROGEN, BLOOD 4 mg/dL (7-18)
[2021-01-14 07:00] LABS: POTASSIUM 2.6 mmol/L (3.5-5.1)
[2021-01-14 07:40] VITALS: BP 167/75
[2021-01-14] MEDS: POTASSIUM CHL 10 MEQ/WATER 50 ML IV PRN ×3 (08:29→14:19)
[2021-01-14] MEDS: ASPIRIN 81 MG CHEWABLE TABLET PO SCH (08:30)
[2021-01-14] MEDS: FAMOTIDINE 10 MG/ML 2 ML VIAL IVP SCH (08:30)
[2021-01-14] MEDS: APIXABAN 5 MG TABLET PO SCH (08:30)
[2021-01-14] MEDS: DOCUSATE SODIUM 100 MG CAPSULE PO SCH ×2 (08:31→08:42)
[2021-01-14] MEDS: POTASSIUM CHLORIDE 20 MEQ ER TABLET PO SCH (08:31)
[2021-01-14] MEDS: FUROSEMIDE 20 MG TABLET PO SCH (08:31)
[2021-01-14] MEDS: CHOLECALCIFEROL (VIT D3) 2,000 UNITS [50 MCG] TABLET PO SCH (08:31)
[2021-01-14] MEDS: LACTOBAC ACID/BULG/BIFID/THERM TABLET PO SCH (08:31)
[2021-01-14] MEDS: MUPIROCIN CALCIUM 2% 15 GM CREAM TP SCH (08:32)
[2021-01-14] MEDS: VITAMINS A & D 113 GM OINTMENT TP SCH (08:32)
[2021-01-14] MEDS: ONDANSETRON HCL 4 MG/2 ML VIAL IVP PRN ×2 (08:57→15:45)
[2021-01-14] MEDS ORDERED: SPIRONOLACTONE 25 MG TABLET PO SCH (09:15)
[2021-01-14] MEDS ORDERED: POTASSIUM CHLORIDE 20 MEQ ER TABLET PO ONE (10:00)
[2021-01-14 11:35] VITALS: BP 154/88
[2021-01-14] MEDS: RAMIPRIL 5 MG CAPSULE PO SCH (12:56)
[2021-01-14] MEDS ORDERED: CEFA2IV IV (14:34)
[2021-01-14] MEDS ORDERED: DOCU-275 PO (14:35)
[2021-01-14] MEDS ORDERED: FAMO20 PO (14:36)
[2021-01-14] MEDS ORDERED: FURO20 PO (14:37)
[2021-01-14] MEDS ORDERED: LACT1CAP70 PO (14:39)
[2021-01-14] MEDS ORDERED: MUPI1OIN5 TP (14:41)
[2021-01-14] MEDS ORDERED: METR500 PO (14:42)
[2021-01-14] MEDS ORDERED: POTA20TA83 PO (14:43)
[2021-01-14] MEDS ORDERED: RAMI10 PO (14:43)
[2021-01-14] MEDS ORDERED: PETR113O TP (14:44)
[2021-01-14] MEDS ORDERED: ACET-2247 PO (14:47)
[2021-01-14] MEDS ORDERED: GABA-1181 PO (14:56)
[2021-01-14] MEDS ORDERED: LOPE2 PO (14:57)
[2021-01-14] MEDS ORDERED: MOM30 PO (14:57)
[2021-01-14] MEDS ORDERED: ONDA-104 PO (15:00)
[2021-01-14] MEDS ORDERED: PERCT PO (15:00)
[2021-01-14] MEDS ORDERED: SPIR25 PO (15:01)
== END 2021-01-14 17:25 | DRG 871 ==
LOC: EMS 12:59 → 5N 16:40 → 5S 01-11 10:06
PROVIDERS: ADMIT Internal Medicine; ATTEND Internal Medicine Geriatric Medicine
PROC: 05HY33Z Insertion of Infusion Device into Upper Vein, Percutaneous Approach (ICD-10-PCS; principal; 2021-01-13)
DX: A41.9 Sepsis, unspecified organism (principal); G93.41 Metabolic encephalopathy; I26.99 Other pulmonary embolism without acute cor pulmonale; L03.116 Cellulitis of left lower limb; E87.3 Alkalosis; L03.115 Cellulitis of right lower limb; E46 Unspecified protein-calorie malnutrition; E87.2 Acidosis; Z68.41 Body mass index [BMI] 40.0-44.9, adult; E87.6 Hypokalemia; Z20.822 Contact with and (suspected) exposure to COVID-19; F41.8 Other specified anxiety disorders; I10 Essential (primary) hypertension; M19.90 Unspecified osteoarthritis, unspecified site; E78.00 Pure hypercholesterolemia, unspecified; M79.7 Fibromyalgia; D64.9 Anemia, unspecified; E03.9 Hypothyroidism, unspecified; F15.90 Other stimulant use, unspecified, uncomplicated; F12.90 Cannabis use, unspecified, uncomplicated; F25.9 Schizoaffective disorder, unspecified; E66.01 Morbid (severe) obesity due to excess calories; G47.33 Obstructive sleep apnea (adult) (pediatric); E87.5 Hyperkalemia; F42.9 Obsessive-compulsive disorder, unspecified; G25.81 Restless legs syndrome; J44.9 Chronic obstructive pulmonary disease, unspecified; T50.2X5A Adverse effect of carbonic-anhydrase inhibitors, benzothiadiazides and other diuretics, initial encounter; R19.7 Diarrhea, unspecified; B95.8 Unspecified staphylococcus as the cause of diseases classified elsewhere; B95.5 Unspecified streptococcus as the cause of diseases classified elsewhere; Y92.89 Other specified places as the place of occurrence of the external cause; Z90.49 Acquired absence of other specified parts of digestive tract; Z88.1 Allergy status to other antibiotic agents; Z88.8 Allergy status to other drugs, medicaments and biological substances; Z86.73 Personal history of transient ischemic attack (TIA), and cerebral infarction without residual deficits; Z90.710 Acquired absence of both cervix and uterus; Z87.891 Personal history of nicotine dependence; Z79.899 Other long term (current) drug therapy; Z86.711 Personal history of pulmonary embolism; Z79.82 Long term (current) use of aspirin; Z87.19 Personal history of other diseases of the digestive system; Z79.01 Long term (current) use of anticoagulants
CPT/HCPCS: 36245; 36569; 51701; 70450; 82570; 82728; 83036; 83605; 83615; 83735; 83930; 83935; 84100; 84132; 84133; 84145; 84300; 84439; 84443; 84550; 85379; 86140; 87040; 87070; 87086; 87205; 87324; 87426; 87449; 93005; 99291; G0480; G0481; J0131; J0690; J2270; J2405; J2543; J3370; J3480; J3490; J7030; J7060; 36415-L1; 36415-TC; 71045-TC; 80061-TC; 80202-TC; U0003

== ENCOUNTER 2021-03-22 10:18 | Emergency (ER) | payer MEDICARE, MEDICAID ==
[~2021-03-22] VITALS: Ht 162.6 cm; Wt 90.9 kg
[~2021-03-22 10:18] MED LIST changes: +ATOR20TA86 PO; -BUPR300F3 PO; -BUSP10TA23 PO; -CLON0.5T4 PO; +DOCU-275 PO; -GABA-1181 PO; -PARO10TA89 PO; -PSYL575P22 PO; -VALB40CA2 PO
[2021-03-22] MEDS ORDERED: ACETAMINOPHEN 325 MG TABLET PO ONE (11:00)
[2021-03-22 12:15] VITALS: BP 109/61
== END 2021-03-22 12:50 | disposition home or self-care (01) ==
LOC: EMS 11:15
DX: S09.90XA Unspecified injury of head, initial encounter (principal); W19.XXXA Unspecified fall, initial encounter; Y93.89 Activity, other specified; Y92.89 Other specified places as the place of occurrence of the external cause; Y99.8 Other external cause status
CPT/HCPCS: 70450; 72125; 99285

== ENCOUNTER 2021-05-08 14:14 | Emergency (ER) | payer MEDICARE, MEDICAID ==
[~2021-05-08] VITALS: Ht 162.6 cm; Wt 90.9 kg
[~2021-05-08 14:14] MED LIST changes: +DOCU-270 PO; -DOCU-275 PO
[2021-05-08 17:33] VITALS: BP 106/72
== END 2021-05-08 17:39 | disposition home or self-care (01) ==
LOC: EMS 14:37
DX: L08.9 Local infection of the skin and subcutaneous tissue, unspecified (principal); R23.8 Other skin changes; F41.9 Anxiety disorder, unspecified; J44.9 Chronic obstructive pulmonary disease, unspecified; E78.00 Pure hypercholesterolemia, unspecified; I10 Essential (primary) hypertension; F20.9 Schizophrenia, unspecified; Z86.73 Personal history of transient ischemic attack (TIA), and cerebral infarction without residual deficits; Z88.1 Allergy status to other antibiotic agents; Z88.8 Allergy status to other drugs, medicaments and biological substances; Z79.82 Long term (current) use of aspirin
CPT/HCPCS: 99283; Z7502

== ENCOUNTER → 2021-10-24 | Outpatient (CLI) | payer MEDICARE, MEDICAID ==
[~2021-10-24] MED LIST changes: +POTA-206 PO; -POTA20TA83 PO
[2021-10-24 14:36] LABS: CHOL/HDL RATIO 2.2 (3.9-5.7)
== END | disposition home or self-care (01) ==
LOC: LABMN 12:01
PROVIDERS: ATTEND Psychiatry & Neurology Psychiatry
DX: F25.1 Schizoaffective disorder, depressive type (principal); Z79.899 Other long term (current) drug therapy
CPT/HCPCS: 80061; 82947; 83036

== ENCOUNTER → 2022-11-08 | Outpatient (CLI) | payer MEDICARE, MEDICAID ==
[~2022-11-08] MED LIST changes: -CHOL200016 PO; +CHOL200059 PO; -DOCU-270 PO; +DOCU-385 PO
== END | disposition home or self-care (01) ==
LOC: RADMN 09:45
PROVIDERS: ATTEND Nurse Practitioner Family
DX: M17.12 Unilateral primary osteoarthritis, left knee (principal); M19.011 Primary osteoarthritis, right shoulder; M75.81 Other shoulder lesions, right shoulder; M75.31 Calcific tendinitis of right shoulder; M76.52 Patellar tendinitis, left knee
CPT/HCPCS: 73200; 73700

== ENCOUNTER → 2023-02-05 | Outpatient (CLI) | payer MEDICARE, MEDICAID | END | disposition home or self-care (01) | LOC: RADPV 10:55 | PROVIDERS: ATTEND Legal Medicine | DX: S62.91XA Unspecified fracture of right hand, initial encounter for closed fracture (principal); X58.XXXA Exposure to other specified factors, initial encounter; Y93.89 Activity, other specified; Y92.89 Other specified places as the place of occurrence of the external cause; Y99.8 Other external cause status | CPT/HCPCS: 73130-TC ==

== ENCOUNTER 2024-04-02 13:37 | Emergency (ER) | payer MEDICARE, MEDICAID ==
[~2024-04-02] VITALS: Ht 162.6 cm; Wt 86.4 kg
[~2024-04-02 13:37] MED LIST changes: +ATOR20TA PO; -ATOR20TA86 PO
[2024-04-02 14:14] VITALS: BP 126/65; PULSE 58; RESP 16; TEMP 98.9
[2024-04-02] MEDS ORDERED: RAMI10CA78 PO (14:52)
[2024-04-02] MEDS: LIDOCAINE 1% 10 ML VIAL SQ ONE (14:58)
[2024-04-02] MEDS: BACITRACIN 0.9 GM PACKET OINTMENT TP ONE (14:58)
[2024-04-02] MEDS: ACETAMINOPHEN 500 MG TABLET PO ONE (14:59)
[2024-04-02] MEDS: PERTUSS(ACELL),DIPH,TET/PF 0.5 ML SYRINGE [ADULT] IM. ONE (15:02)
[2024-04-02] MEDS: CEPHALEXIN MONOHYDRATE 500 MG CAPSULE PO ONE (15:11)
[2024-04-02] MEDS ORDERED: CEPH-558 PO (16:25)
== END 2024-04-02 17:40 | disposition home or self-care (01) ==
LOC: EDUNIT# 13:37 → EMS 13:37
DX: S81.811A Laceration without foreign body, right lower leg, initial encounter (principal); J44.9 Chronic obstructive pulmonary disease, unspecified; I10 Essential (primary) hypertension; Z88.2 Allergy status to sulfonamides; Z88.5 Allergy status to narcotic agent; Z88.6 Allergy status to analgesic agent; Z88.8 Allergy status to other drugs, medicaments and biological substances; W54.1XXA Struck by dog, initial encounter; Y93.89 Activity, other specified; Y92.89 Other specified places as the place of occurrence of the external cause; Y99.8 Other external cause status
CPT/HCPCS: 99283; 90715; 90471; 12004; J3490

== ENCOUNTER 2024-04-05 12:21 | Emergency (ER) | payer MEDICARE, MEDICAID ==
[~2024-04-05] VITALS: Ht 162.6 cm; Wt 86.0 kg
[~2024-04-05 12:21] MED LIST changes: +CEPH-558 PO; -RAMI10 PO; +RAMI10CA78 PO
[2024-04-05] MEDS: BACITRACIN 0.9 GM PACKET OINTMENT TP ONE (15:27)
[2024-04-05 16:11] VITALS: BP 113/69; PULSE 69; RESP 16; TEMP 98.4
== END 2024-04-05 16:47 | disposition home or self-care (01) ==
LOC: EMS 12:26
DX: S81.811D Laceration without foreign body, right lower leg, subsequent encounter (principal); F41.9 Anxiety disorder, unspecified; M19.90 Unspecified osteoarthritis, unspecified site; J44.9 Chronic obstructive pulmonary disease, unspecified; F32.A Depression, unspecified; E78.00 Pure hypercholesterolemia, unspecified; I10 Essential (primary) hypertension; F20.9 Schizophrenia, unspecified; Z87.891 Personal history of nicotine dependence; Z90.49 Acquired absence of other specified parts of digestive tract; Z90.710 Acquired absence of both cervix and uterus; Z98.890 Other specified postprocedural states; Z88.2 Allergy status to sulfonamides; Z88.5 Allergy status to narcotic agent; Z88.1 Allergy status to other antibiotic agents; Z88.6 Allergy status to analgesic agent; X58.XXXD Exposure to other specified factors, subsequent encounter
CPT/HCPCS: 99282; Z7502; Z7610